=== PATIENT | male | born 1955 | race Caucasian/White ===

== ENCOUNTER 2021-11-06 10:50 | Emergency (ER) | payer MEDICARE, MEDICAID, SELFPAY ==
[2021-11-06 11:57] VITALS: BP 104/72; PULSE 72; RESP 16; TEMP 36.5; O2SAT 97
[2021-11-06 12:32] LABS: Basophils Absolute Auto 0.1 K/mm3 (0.0-0.1); Basophils Percent Auto 0.8 % (0.2-1.2); Eosinophils Absolute Auto 0.4 K/mm3 (0-0.3); Eosinophils Percent Auto 4.9 % (0-4.4); Hemoglobin 13.6 g/dL (14.0-18.0); Immature Granulocyte Absolute 0.03 K/mm3 (0.00-0.031); Immature Granulocyte Percent A 0.4 % (0-0.5); Lymphocytes Absolute Auto 1.74 K/mm3 (0.9-3.2); Lymphocytes Percent Auto 24.4 % (18.3-44.2); Mean Corpuscular HGB Conc 33.2 g/dl (32-36); Mean Corpuscular Hemoglobin 32.7 pg (26-34); Mean Corpuscular Volume 98.6 fl (80-100); Monocytes Absolute Auto 0.3 K/mm3 (0.1-0.6); Monocytes Percent Auto 4.6 % (2.6-8.5); Neutrophils Absolute Auto 4.6 K/mm3 (1.3-6.7); Neutrophils Percent Auto 64.9 % (45.5-73.1); Platelet Count Result 221 k/mm3 (150-375); Red Blood Count 4.16 M/mm3 (4.6-6.20); Red Cell Distribution Width 12.5 % (11.5-14.5); White Blood Count 7.1 K/mm3 (4.5-10.0)
[2021-11-06 12:43] LABS: Alanine Aminotransferase 17 U/L (6-50); Albumin Level 4.5 g/dL (3.5-5.1); Alkaline Phosphatase 124 U/L (38-126); Anion Gap 6 mmol/L (8-16); Aspartate Amino Transferase 28 U/L (17-59); Bilirubin,Total 0.4 mg/dL (0.2-1.3); Blood Urea Nitrogen 19 mg/dL (9-20); Calcium 8.8 mg/dL (8.4-10.2); Carbon Dioxide 30 mmol/L (22-30); Chloride 100 mmol/L (98-107); Creatine Kinase 64 U/L (55-170); Estimated CRCL calculation 33 ml/min; Estimated Glomerular Filt Rate 30; Glucose 110 mg/dL (65-110); Potassium 4.7 mmol/L (3.4-5.0); Sodium 136 mmol/L (137-145)
[2021-11-06 13:04] LABS: Magnesium 2.4 mg/dL (1.6-2.3)
--- NOTE | 2021-11-06 13:42 | ED.LOWEXIN ---
HPI - Extremity Injury (Lower) General Chief Complaint: Extremity Injury, Lower Stated Complaint: Right Calf Pain Time Seen by Provider: 11/06/21 12:08 Source: patient History of Present Illness HPI Narrative: Patient present with right calf pain x1 week it was more severe this morning so he came to the ER for evaluation. Denies any trauma to the area denies any edema. Does report he is very good about taking his anticoagulation. Denies any chest pain or shortness of breath denies any erythema to the area. Denies any fevers or chills. Pain in his calf is achy, constant, worse with walking around, radiates up his leg Related Data Home Medications Medication Instructions Recorded Confirmed acetaminophen 325 mg capsule 325 mg PO Q6H PRN 11/15/20 04/20/21 albuterol sulfate 90 mcg/actuation 2 puff INHALATION Q4H PRN g 11/15/20 04/20/21 aerosol inhaler aspirin 81 mg tablet,delayed 81 mg PO DAILY 11/15/20 04/20/21 release fluoxetine 20 mg capsule 20 mg PO TID cap 11/15/20 04/20/21 furosemide 40 mg tablet 40 mg PO DAILY tablet 11/15/20 04/20/21 levothyroxine 112 mcg capsule 112 mcg PO DAILY 11/15/20 04/20/21 lisinopril 5 mg tablet 5 mg PO DAILY 11/15/20 04/20/21 potassium chloride 20 mEq 20 meq PO DAILY 11/15/20 04/20/21 tablet,extended release pravastatin 80 mg tablet 80 mg PO DAILY 11/15/20 04/20/21 rivaroxaban 15 mg tablet 15 mg PO DAILY 11/15/20 04/20/21 Allergies Allergy/AdvReac Type Severity Reaction Status Date / Time No Known Drug Allergies Allergy Mild Unknown Verified 04/20/21 14:07 Review of Systems Review of Systems: CONSTITUTIONAL: Denies fever, chills, or sweats. EYES: Denies visual changes, redness, or discharge. ENT: Denies rhinorrhea, congestion, sore throat, or otalgia. CARDIOVASCULAR: Denies chest pain, palpitations, or edema. RESPIRATORY: Denies cough or dyspnea. GASTROINTESTINAL: Denies abdominal pain, nausea, vomiting, or diarrhea. GENITOURINARY: Denies dysuria or hematuria. SKIN: Denies rash or itching. MUSCULOSKELETAL: Denies back pain, or myalgia. NEUROLOGIC: Denies headache, numbness, dizziness, or weakness. PSYCHIATRIC: Denies anxiety or depression. All systems reviewed & are unremarkable except as noted in HPI and below PMFSH Past Medical History Medical History Back pain Social History Social History Smoking packs per day: 1 Smoking cigarettes per day: 20.0 Smoking status: Current every day smoker Alcohol intake: never Exam Narrative: GENERAL: Well-appearing, well-nourished, and in no acute distress. HEAD: Normocephalic, atraumatic. EYES: PERRLA and EOMI. ENT: Nares clear, no rhinorrhea or epistaxis. Mucous membranes moist. NECK: Supple. No masses. No JVD ABDOMEN: Soft, nontender, nondistended, normal active bowel sounds. EXTREMITIES: Normal range of motion. No erythema no skin breakdown no edema in the lower extremities no focal bony tenderness no pain with palpation of the calf SKIN: Warm, dry, no rash. NEURO: No focal deficits. Alert and oriented x3. PSYCH: Normal mood and affect. Course Reevaluation(s) Reevaluation #1: Patient resting comfortably results and plan reviewed with patient. Patient comfortable patient plan. Date: 11/06/21 Time: 13:44 Vital Signs Vital signs: Vital Signs Temperature 36.5 C 11/06/21 11:57 Pulse Rate 72 11/06/21 11:57 Respiratory Rate 16 11/06/21 11:57 Blood Pressure 104/72 11/06/21 11:57 Pulse Oximetry 97 11/06/21 11:57 Temperature 36.6 C 11/06/21 13:51 Pulse Rate 70 11/06/21 13:51 Respiratory Rate 20 11/06/21 13:51 Blood Pressure 110/64 11/06/21 13:51 Pulse Oximetry 96 11/06/21 13:51 MDM - Extremity Injury (Lower) MDM Narrative Medical decision making narrative: H&P as above, vss, pt looks clinically well, exam without edema erythema or focal bony tenderness, labs clinically un
[2021-11-06 13:51] VITALS: BP 110/64; PULSE 70; RESP 20; TEMP 36.6; O2SAT 96
== END 2021-11-06 13:52 | disposition home or self-care (01) ==
PROVIDERS: Emergency Provider Emergency Medicine; PCP Nurse Practitioner Family
DX: M79.661 Pain in right lower leg (principal); Z79.82 Long term (current) use of aspirin; Z79.01 Long term (current) use of anticoagulants; F17.210 Nicotine dependence, cigarettes, uncomplicated
CPT/HCPCS: 36415; 80053; 82550; 83735; 85025; 99283

== ENCOUNTER 2022-11-20 18:44 | Inpatient (IN) | payer MEDICARE, MEDICAID, SELFPAY ==
[2022-11-20] VITALS (7 sets, daily range): BP systolic 90–103; BP diastolic 51–79; PULSE 120–122; RESP 18–29; TEMP 36.7; O2SAT 96–100
--- NOTE | ~2022-11-20 | XR_ITS ---
Portable chest x-ray Comparison: 11/20/2022 Clinical History: Pneumonia Findings: Extensive hazy and interstitial pulmonary disease is again present. Possible minimal right pleural effusion. Cardiomediastinal silhouette is stable. Bones and soft tissues are unremarkable. Impression: Probable diffuse chronic interstitial pulmonary disease. Correlate for superimposed pneumonia or mild pulmonary edema. Minimal right pleural effusion. Reviewed, dictated and finalized at [facility]. Impression: Probable diffuse chronic interstitial pulmonary disease. Correlate for superimp osed pneumonia or mild pulmonary edema. Minimal right pleural effusion.
--- NOTE | ~2022-11-20 | CT_ITS ---
Clinical Indication: Shortness of breath, back pain CT Scan of the Chest, Abdomen, and Pelvis with Contrast: Technique: Contiguous sections were acquired throughout the chest, abdomen, and pelvis after intraven ous administration of 100 cc of Omnipaque 350. Dose reduction technique was used on this scan by uti lizing automated exposure control and iterative reconstruction technique. The dose-length product (DL P) was 1493.32 mGy-cm. COMPARISON: 11/21/2022 Findings: There is no evidence of any significant mediastinal, hilar or axillary lymphadenopathy. The mediastin al soft tissues appear normal. No pulmonary embolus identified. No aortic aneurysm or dissection. Car diomegaly noted. Small right pleural effusion present, with thickening of the pleural lining. No left pleural effusion . No pericardial effusion. There is worsening diffuse groundglass opacity in the upper lobes bilaterally. Underlying extensive i nterstitial thickening is probably similar to prior exam. There is stable mass versus consolidation i n the medial right lower lobe with extensive additional right lower lobe consolidation. The liver, spleen, pancreas, gallbladder, right adrenal gland, and kidneys are within normal limits. 1.5 cm left adrenal nodule present. Infrarenal abdominal aortic aneurysm measures 4.3 cm in maximum d iameter, with extensive atherosclerotic calcifications present. No lymphadenopathy. No bowel obstruction or bowel wall thickening. There is no evidence to suggest acute appendicitis. Santa catheter in place. Prostate gland is mildly enlarged. No ascites. Impression: Worsening extensive groundglass opacity in the lungs, compatible with worsening pulmonary edema versu s infection. Stable mass lesion or consolidation at the medial right lower lobe, which could reflect pneumonia bradley matt neoplastic lesion. Additional extensive right lower lobe consolidation similar to prior exam, lik aneesh representing additional atelectasis or pneumonia. Probable underlying chronic interstitial pulmonary disease with diffuse interstitial thickening and m ild honeycomb formation. Small chronic right pleural effusion could relate empyema or other exudative effusion. Cardiomegaly. No aortic dissection or pulmonary embolus. 4.3 cm infrarenal abdominal aortic aneurysm. 1.5 cm indeterminate left adrenal nodule. Reviewed, dictated and finalized at location M. Impression: Worsening extensive groundglass opacity in the lungs, compatible with worsening pulmonary edema versus infection. Stable mass lesion or consolidation at the medial right lower lobe, which could reflect pneumonia versus neoplastic lesion. Additional extensive right lower l obe consolidation similar to prior exam, likely representing additional atelect asis or pneumonia. Probable underlying chronic interstitial pulmonary disease with diffuse interst itial thickening and mild honeycomb formation. Small chronic right pleural effusion could relate empyema or other exudative ef fusion. Cardiomegaly. No aortic dissection or pulmonary embolus. 4.3 cm infrarenal abdominal aortic aneurysm. 1.5 cm indeterminate left adrenal nodule.
--- NOTE | ~2022-11-20 | XR_ITS ---
EXAMINATION: XR barium swallow modified DATE: 11/23/2022 09:48 INDICATION: Pneumonia. TECHNIQUE: The patient was given barium-containing material of multiple consistencies to swallow by t he speech pathologist while I performed fluoroscopy. Fluoroscopy exposure time was 1.9 minutes. The n umber of fluoroscopy images saved to the PACS was 1. Dose-area product was 1.556 Gy-cm^2. FINDINGS: There is reduced laryngeal elevation. There is laryngeal penetration with thin liquids. IMPRESSION: 1. Laryngeal penetration with thin liquids. 2. Please refer to the speech therapy report for recommendations. Reviewed, dictated and finalized at location A.
--- NOTE | ~2022-11-20 | CT_ITS ---
Non-contrast Head CT History: Dilated and fixed right pupil COMPARISON: 11/20/2022 Technique: Axial non-contrast imaging of the brain was performed. Dose reduction technique was used on this scan by utilizing automated exposure control and iterative reconstruction technique. The dose -length product (DLP) was 2043.00 mGy-cm. Findings: There is no evidence of intracranial hemorrhage, mass lesion, or acute infarct. Extensive chronic right frontoparietal lobe infarct is unchanged. The ventricles and subarachnoid spaces are d ilated, consistent with generalized atrophy. The calvarium appears normal. The visualized paranasal sinuses and mastoid air cells are clear. Impression: No acute abnormality seen. Stable extensive chronic right frontoparietal lobe infarct. Reviewed, dictated and finalized at location . Impression: No acute abnormality seen. Stable extensive chronic right frontoparietal lobe infarct.
--- NOTE | ~2022-11-20 | NM_ITS ---
EXAMINATION: NM pulmonary perfusion DATE: 11/21/2022 11:46 INDICATION: Hemoptysis. TECHNIQUE: 4.6 mCi Tc-99m MAA was administered intravenously for perfusion images. Scintigraphic gagandeep ges of the chest were obtained. COMPARISON: Chest single view 11/20/2022 FINDINGS: Perfusion images show large defects in the upper and lower lobes correlating with chest radiograph ab normalities. IMPRESSION: 1. Nondiagnostic (intermediate probability for pulmonary embolism). Reviewed, dictated and finalized at location A.
--- NOTE | ~2022-11-20 | CT_ITS ---
EXAMINATION:CT diagnostic chest wo con DATE: 11/21/2022 14:39 INDICATION: Hemoptysis. TECHNIQUE: Computed tomography (CT) of the chest was performed without intravenous contrast. Automate d exposure control and iterative reconstruction technique were employed. The dose-length product (DLP ) was 408.14 mGy-cm. COMPARISON: Chest CT 07/16/2009, chest single view 11/20/2022, chest 2 views 11/10/2013 FINDINGS: There is mild emphysema. There is widespread septal thickening in the lungs with architectu ral distortion. There are areas of honeycombing in the upper lobes, right middle lobe, and left lower lobe. There are scattered airspace and groundglass opacities in all lobes, worst in right lower lobe . There is material in the right lower lobe bronchi. There is a small right pleural effusion with ple ural thickening. Cardiomegaly is noted. There are coronary artery calcifications. There are changes o f coronary artery bypass grafting and mitral valve placement. No pericardial effusion. There is mild thoracic spondylosis. IMPRESSION: 1. Diffuse lung disease, likely a combination of pneumonia, pulmonary edema, chronic interstitial jessica g disease in a pattern of usual interstitial pneumonia (UIP), and mild emphysema. 2. Small right pleural effusion with pleural thickening, likely an exudate. Reviewed, dictated and finalized at location A. IMPRESSION: 1. Diffuse lung disease, likely a combination of pneumonia, pulmonary edema, ch ronic interstitial lung disease in a pattern of usual interstitial pneumonia (U IP), and mild emphysema. 2. Small right pleural effusion with pleural thickening, likely an exudate.
--- NOTE | ~2022-11-20 | CT_ITS ---
EXAMINATION: CT brain wo con DATE: 11/20/2022 19:25 INDICATION: facial droop . TECHNIQUE: Computed tomography (CT) of the head was performed without intravenous contrast. The mA wa s adjusted according to patient size. Iterative reconstruction technique was employed. The dose-lengt h product was 681.00 mGy-cm. COMPARISON: 03/03/2012. FINDINGS: No acute intracranial hemorrhage or extra-axial fluid collection. No hydrocephalus, mass, or herniation. No acute ischemic infarct. Unremarkable dural venous sinus attenuation. No acute osseous abnormality. Left maxillary sinus opacification with slight expansion and surrounding osseous sclerosis, mild ethm oid mucosal thickening, the remaining aerated spaces are clear. Moderate atrophy and chronic white matter change. Atherosclerotic intracranial calcification. Right p osterior frontal, basal ganglia, temporal and parietal encephalomalacia, likely from old infarct. Ex vacuo dilation of the right lateral ventricle. IMPRESSION: No acute intracranial process. Reviewed, dictated and finalized at location K.
--- NOTE | ~2022-11-20 | US_ITS ---
. EXAMINATION: US venous doppler UE DATE: 11/21/2022 15:20 INDICATION: Hemoptysis. Shortness of breath. TECHNIQUE: Grayscale ultrasound images without and with compression and Doppler ultrasound images of the bilateral upper extremity veins were obtained. COMPARISON: None. FINDINGS: The visualized portions of the right internal jugular vein, subclavian vein, axillary vein, brachial veins, basilic vein, cephalic vein, radial vein, and ulnar vein are patent. The visualized portions of the left internal jugular vein, subclavian vein, axillary vein, brachial v eins, basilic vein, cephalic vein, radial vein, and ulnar vein are patent. IMPRESSION: 1. No deep venous thrombosis. Reviewed, dictated and finalized at location A.
--- NOTE | ~2022-11-20 | XR_ITS ---
EXAMINATION: XR chest 1V Exam Date/Time: 11/20/2022 19:25 CDT HISTORY: Stroke symptoms, SLURRED SPEECH WITH RT SIDE FACIAL NUMBNESS Comparison: 12/11/2013. RESULT: Lines, tubes, and devices: Intact sternotomy wires. Cardiac valve replacement. Mediastinal surgical clips. Lungs and pleura: Diffuse bilateral patchy airspace disease and reticular opacities. Minimal bilater al costophrenic angle blunting. Cardiomediastinal silhouette: Stable. Other: No acute osseous or upper abdominal finding. IMPRESSION: Pulmonary opacities likely represent moderate pulmonary edema with a small bilateral pleural effusion s. Infection is not excluded. Reviewed, dictated and finalized at location K. IMPRESSION: Pulmonary opacities likely represent moderate pulmonary edema with a small bila teral pleural effusions. Infection is not excluded.
--- NOTE | ~2022-11-20 | US_ITS ---
EXAMINATION: US venous doppler [facility] DATE: 11/21/2022 15:21 INDICATION: Shortness of breath. TECHNIQUE: Grayscale ultrasound images without and with compression and Doppler ultrasound images of the bilateral lower extremity veins were obtained. COMPARISON: Ultrasound 07/19/2009 FINDINGS: The visualized portions of right common femoral vein, profunda (deep) femoral vein, femoral vein, pop liteal vein, peroneal veins, posterior tibial veins, and greater saphenous vein outflow are patent. The visualized portions of left common femoral vein, profunda femoral vein, femoral vein, popliteal v ein, peroneal veins, posterior tibial veins, and greater saphenous vein outflow are patent. IMPRESSION: 1. No deep venous thrombosis. Reviewed, dictated and finalized at location A.
--- NOTE | ~2022-11-20 | XR_ITS ---
EXAMINATION: XR chest 1V portable DATE: 11/23/2022 22:57 INDICATION: Shortness of breath. Hypoxia. TECHNIQUE: frontal view of the chest was obtained. COMPARISON: Chest radiograph dated 11/22/2022 FINDINGS: Interval increase in the diffuse interstitial pattern and patchy airspace opacities throughout both l ungs consistent with worsening now moderate to severe pulmonary edema. Small bilateral pleural effusi ons. No pneumothorax. Cardiomegaly. Median sternotomy wires and mediastinal surgical clips are seen, likely from prior coronary artery bypass grafting. Mitral valve repair. IMPRESSION: 1. Interval increase in diffuse bilateral interstitial and airspace opacities consistent with worseni ng now moderate to severe pulmonary edema. Differential includes pneumonia. 2. Small bilateral pleural effusions. 3. Cardiomegaly. Reviewed, dictated and finalized at location A. IMPRESSION: 1. Interval increase in diffuse bilateral interstitial and airspace opacities c onsistent with worsening now moderate to severe pulmonary edema. Differential i ncludes pneumonia. 2. Small bilateral pleural effusions. 3. Cardiomegaly.
--- NOTE | 2022-11-20 19:03 | ECG_ITS ---
Measurements Intervals [place] Rate: 120 P: FL: 0 QRS: 9 QRSD: 96 T: 157 QT: 316 QTc: 448 Interpretive Statements ATRIAL FLUTTER/TACHYCARDIA WITH RAPID VENTRICULAR RESPONSE ST-T WAVE ABNORMALITY IN HIGH LATERAL LEADS- CONSIDER ISCHEMIA ABNORMAL ECG NO PREVIOUS ECG AVAILABLE FOR COMPARISON Electronically Signed On 11-21-2022 8:06:08 CDT by Roman Bush D.O.
[2022-11-20 19:52] LABS: Glucose Point of Care 127 mg/dl (65-105)
[2022-11-20 19:52] LABS: Basophils Percent Auto 0.2 % (0.2-1.2); Eosinophils Absolute Auto 0.1 K/mm3 (0-0.3); Eosinophils Percent Auto 0.5 % (0-4.4); Hematocrit 26.5 % (42.0-52.0); Hemoglobin 8.1 g/dL (14.0-18.0); Immature Granulocyte Absolute 0.04 K/mm3 (0.00-0.031); Immature Granulocyte Percent A 0.3 % (0-0.5); Lymphocytes Absolute Auto 1.66 K/mm3 (0.9-3.2); Lymphocytes Percent Auto 12.9 % (18.3-44.2); Mean Corpuscular HGB Conc 30.6 g/dl (32-36); Mean Corpuscular Hemoglobin 27.7 pg (26-34); Mean Corpuscular Volume 90.8 fl (80-100); Mean Platelet Volume 8.8 fl (7.4-10.4); Monocytes Absolute Auto 0.8 K/mm3 (0.1-0.6); Monocytes Percent Auto 5.9 % (2.6-8.5); Neutrophils Absolute Auto 10.3 K/mm3 (1.3-6.7); Neutrophils Percent Auto 80.2 % (45.5-73.1); Platelet Count Result 316 k/mm3 (150-375); Red Blood Count 2.92 M/mm3 (4.6-6.20); Red Cell Distribution Width 14.1 % (11.5-14.5); White Blood Count 12.9 K/mm3 (4.5-10.0)
[2022-11-20 20:01] LABS: Alanine Aminotransferase 17 U/L (6-50); Albumin Level 3.5 g/dL (3.5-5.1); Alkaline Phosphatase 137 U/L (38-126); Anion Gap 6 mmol/L (8-16); Aspartate Amino Transferase 28 U/L (17-59); Bilirubin,Total 0.5 mg/dL (0.2-1.3); Blood Urea Nitrogen 19 mg/dL (9-20); Calcium 8.3 mg/dL (8.4-10.2); Carbon Dioxide 29 mmol/L (22-30); Chloride 102 mmol/L (98-107); Estimated CRCL calculation 37 ml/min; Estimated Glomerular Filt Rate 33; Glucose 127 mg/dL (65-110); Potassium 4.2 mmol/L (3.4-5.0); Sodium 137 mmol/L (137-145)
[2022-11-20 20:05] LABS: INR 2.4; Prothrombin Time 28.1 Seconds (11.1-14.7)
[2022-11-20 20:06] LABS: Partial Thromboplastin Time 55.2 SECONDS (22.3-36.8)
[2022-11-20] MEDS: IPRATROPIUM BR 0.02% INH SOLN 0.5 MG/2.5 ML VIAL INHALATION (20:10)
[2022-11-20] MEDS: LEVALBUTEROL NEB 1.25 MG/3 ML INHALATION (20:10)
[2022-11-20 20:12] LABS: Troponin I 0.024 ng/mL (0.000-0.034)
[2022-11-20] MEDS: SODIUM CHLORIDE 0.9% IV 1,000 ML 999 ML IV CONT (20:42)
[2022-11-20 20:50] LABS: Lactic Acid Reflex 0.9 mmol/L (0.7-2.0)
[2022-11-20 20:58] LABS: NT Pro B Type Natriuretic Pept 5230 pg/mL (19.9-100)
[2022-11-20] MEDS: LEVALBUTEROL NEB 1.25 MG/3 ML 2.5 MG INHALATION (22:03)
--- NOTE | 2022-11-20 22:10 | ED.GENADULT ---
HPI - General Adult General Chief complaint: Neuro Symptoms/Deficit Stated complaint: SLURRED SPEECH, HISTORY OF CVA Time Seen by Provider: 11/20/22 19:03 History of Present Illness HPI narrative: Patient is a 67-year-old male with history of CVA who presents ER due to concern for possible CVA by family. They report he awoke from a nap with new slurred speech. They thought he may have been having a stroke. They report he has been having difficulty standing over the last 2 weeks has had falls more than usual. reports she cannot take care of him. Patient also has new cough but no fevers or chills reported. He denies any chest pain or racing heart. He denies any slurred speech at this time and has no additional complaints. Related Data Home Medications Medication Instructions Recorded Confirmed albuterol sulfate 90 mcg/actuation 2 puff inhalation Q4H PRN 11/15/20 11/20/22 aerosol inhaler (ProAir HFA) Shortness Of Breath Or Wheezing aspirin 81 mg tablet,delayed 81 mg PO DAILY 11/15/20 11/20/22 release fluoxetine 20 mg capsule (Prozac) 20 mg PO DAILY 11/15/20 11/20/22 furosemide 40 mg tablet 40 mg PO DAILY 11/15/20 11/20/22 levothyroxine 112 mcg capsule 112 mcg PO DAILY 11/15/20 11/20/22 lisinopril 5 mg tablet 5 mg PO DAILY 11/15/20 11/20/22 potassium chloride 20 mEq 20 meq PO DAILY 11/15/20 11/20/22 tablet,extended release pravastatin 80 mg tablet 80 mg PO DAILY 11/15/20 11/20/22 rivaroxaban 15 mg tablet (Xarelto) 15 mg PO DAILY 11/15/20 11/20/22 carvedilol 3.125 mg tablet 3.125 mg PO BID 11/20/22 11/20/22 Allergies Allergy/AdvReac Type Severity Reaction Status Date / Time No Known Drug Allergies Allergy Mild Unknown Verified 04/20/21 14:07 Review of Systems Review of Systems: All systems reviewed & are unremarkable except as noted in HPI and below Constitutional: Constitutional: Denies chills, Denies fatigue and Denies fever(s) ENT: Denies nasal congestion and Denies sore throat Cardiovascular: Cardiovascular: Denies chest pain, Denies rapid heart rate and Denies radiating jaw, neck or arm pain Respiratory: Respiratory: Reports chest congestion, Reports cough, Denies dyspnea and Reports wheezing Gastrointestinal: Gastrointestinal: Denies abdominal pain, Denies diarrhea, Denies nausea and Denies vomiting Neurologic: Denies syncope and Reports focal weakness (Chronic left side) Comments: Frequent falls PMFSH Past Medical History Medical History (Updated 11/21/22 @ 06:48 by Trev Emmanuel MD) Anxiety Back pain Coronary artery disease CVA (cerebral vascular accident) Depression Hypertension Seizure Surgical History Surgical History (Updated 11/21/22 @ 06:46 by Trev Emmanuel MD) History of appendectomy History of percutaneous coronary intervention Hx of CABG Social History Social History Smoking packs per day: 1 Smoking cigarettes per day: 20.0 Smoking status: Current every day smoker Alcohol intake: never Lack of Transportation: No Lack of Food: Never True Current Housing: I Have Housing Concerned About Future Housing: No Difficulty Paying Gas/Electric Bills: No Difficulty Paying for Meds: No Currently Unemployed: No Education: Decline to Answer Difficulty w/ Childcare or Family Care: Decline to Answer Spiritual care concerns: No Exam Narrative: GENERAL: Chronically ill-appearing, well-nourished, and in no acute distress. HEAD: Normocephalic, atraumatic. EYES: PERRL and EOMI. ENT: Mucous membranes moist. CHEST: Coarse rales and wheezing throughout. No respiratory distress. HEART: Tachycardic and regular. Normal peripheral pulses. ABDOMEN: Soft, nontender, nondistended. EXTREMITIES: Normal range of motion. No edema. SKIN: Warm, dry, no rash. NEURO: Residual left-sided weakness due to CVA. No dysarthria or expressive aphasia. Cranial nerves symmetric. Alert and oriented x3.
[2022-11-20] MEDS: LORazepam INJ (*CRX) 2 MG/ML VIAL 1 MG IV PUSH (22:11)
--- NOTE | 2022-11-20 23:44 | PM.IMHP ---
H&P: HPI History of Present Illness Date/Time: 11/20/22 23:44 Chief Complaint: Slurred speech; recurrent falls. Narrative: This is a 67-year-old gentleman with a past medical history including but not limited to CVA(2010), left-sided residual deficit, recurrent falls for several days; hypotensive and tachycardic with the following vital signs : A temperature of 97.5?, heart rate 121, respiration rate 18, BP 90/79. he CBC shows a WBC of 12.9, hemoglobin 8.1, hematocrit 26.5, platelet count 316. His chemistry shows a serum sodium of 137, a potassium of 4.2, chloride 102, bicarbonate 29, BUN 19, creatinine 2.0. Blood glucose an Accu-Chek were post 127. Lactic acid level was 0.9. His iron level was low at 23, with a TIBC of 246, and iron saturation of 9.0. His chest x-ray showed intact sternotomy wires. Cardiac valve replacement. Mediastinal surgical clips. Lungs and pleura:? Diffuse bilateral patchy airspace disease and reticular opacities. Minimal bilateral costophrenic angle blunting. Cardiomediastinal silhouette:? Stable. Other:? No acute osseous or upper abdominal finding. The patient is a poor historian. History is gathered from chart review. This AM RN reports that the patient is coughing blood. Dried blood can be observed on the nares. Review of Systems Review of Systems: ROS unobtainable: Yes unobtainable due to mental status PMFSH Past Medical History Medical History (Updated 11/21/22 @ 10:06 by Adleina Quintana MD) Anxiety Back pain Coronary artery disease CVA (cerebral vascular accident) Depression Hypertension Seizure Surgical History Surgical History (Updated 11/21/22 @ 10:03 by Adelina Quintana MD) History of appendectomy History of percutaneous coronary intervention Hx of CABG Social History Social History Smoking packs per day: 1 Smoking cigarettes per day: 20.0 Smoking status: Current every day smoker Alcohol intake: never Lack of Transportation: No Lack of Food: Never True Current Housing: I Have Housing Concerned About Future Housing: No Difficulty Paying Gas/Electric Bills: No Difficulty Paying for Meds: No Currently Unemployed: No Education: Decline to Answer Difficulty w/ Childcare or Family Care: Decline to Answer Spiritual care concerns: No Meds Home Medications and Allergies Home Medications Medication Instructions Recorded Confirmed Type albuterol sulfate 90 mcg/actuation 2 puff inhalation Q4H PRN 11/15/20 11/20/22 History aerosol inhaler (ProAir HFA) Shortness Of Breath Or Wheezing aspirin 81 mg tablet,delayed 81 mg PO DAILY 11/15/20 11/20/22 History release fluoxetine 20 mg capsule (Prozac) 20 mg PO DAILY 11/15/20 11/20/22 History furosemide 40 mg tablet 40 mg PO DAILY 11/15/20 11/20/22 History levothyroxine 112 mcg capsule 112 mcg PO DAILY 11/15/20 11/20/22 History lisinopril 5 mg tablet 5 mg PO DAILY 11/15/20 11/20/22 History potassium chloride 20 mEq 20 meq PO DAILY 11/15/20 11/20/22 History tablet,extended release pravastatin 80 mg tablet 80 mg PO DAILY 11/15/20 11/20/22 History rivaroxaban 15 mg tablet (Xarelto) 15 mg PO DAILY 11/15/20 11/20/22 History hydrocodone 7.5 mg-acetaminophen 1 tablet PO Q6H PRN pain (scale 05/22/21 11/20/22 Rx 325 mg tablet score 7-10) #120 tabs gabapentin 300 mg capsule 300 mg PO DAILY #30 caps 11/06/21 11/20/22 Rx carvedilol 3.125 mg tablet 3.125 mg PO BID 11/20/22 11/20/22 History Allergies Allergy/AdvReac Type Severity Reaction Status Date / Time No Known Drug Allergies Allergy Mild Unknown Verified 04/20/21 14:07 Vital Signs Vital Signs - 24 hr 11/20/22 18:54 11/20/22 20:10 11/20/22 20:18 Temperature 98.0 F Pulse Rate 121 H 120 H 121 H Respiratory Rate 20 20 18 Blood Pressure 90/51 L Pulse Oximetry 100 Oxygen Delivery Room Air 11/20/22 20:44 11/20/22 22:03 11/20/22 23:18 Temperature Pulse Rate 120 H 121 H 120 H Res
[2022-11-21] VITALS (31 sets, daily range): BP systolic 80–115; BP diastolic 38–78; PULSE 100–125; RESP 18–24; TEMP 36–36.9; O2SAT 85–100; BMI 23.4
--- NOTE | 2022-11-21 | ECHO_ITS ---
Patient Info Name: Billy Rosenberg Age: 67 years : 1955 Gender: Male Ht: 72 in Wt: 172 lbs BSA: 1.99 m2 HR: 120 bpm BP: 91 / 59 mmHg Heart Rhythm: Sinus Rhythm, Tachycardia Technical Quality: Fair Exam Date: 11/21/2022 9:08 AM Exam Location: [facility] Patient Status: Outpatient Admit Date: 11/20/2022 Staff Ordering Physician: Adelina Quintana MD Automobile Locator: Carlita Faye RDCS Attending Provider: Adelina Quintana MD Exam Type: CA echo doppler color flow Study Info Indications - Pulmonary Embolisim Complete two-dimensional, color flow and Doppler transthoracic echocardiogram is performed. Summary 1. Complete two-dimensional, color flow and Doppler transthoracic echocardiogram is performed. 2. Left ventricular chamber dimension is normal. 3. Left ventricular systolic function is mildly reduced, estimated at 40-45%. Of note, patient is tachycardic during this study. 4. Left ventricular septal wall motion is abnormal with septal motion related to a post-operative state. 5. Right ventricular chamber dimension is normal. 6. Right ventricular systolic function is normal. 7. The mitral valve annulus is severely calcified. 8. The mitral valve has thickened leaflets. 9. There is trace mitral valve regurgitation. 10. There is mild tricuspid valve regurgitation. Left Ventricle Left ventricular chamber dimension is normal. Left ventricular systolic function is mildly reduced, estimated at 40-45%. Of note, patient is tachycardic during this study. There is no increased left ventricular wall thickness. Left ventricular septal wall motion is abnormal with septal motion related to a post-operative state. Right Ventricle Right ventricular chamber dimension is normal. Right ventricular systolic function is normal. Left Atria Left atrial chamber dimension is normal. Right Atria Right atrial chamber dimension is normal. Atrial Septum Intact interatrial septum visualized by color flow imaging. Aortic Valve The aortic valve is trileaflet. There is no aortic valve stenosis. There is no aortic valve regurgitation. There is mild aortic valve calcification. Pulmonic Valve The pulmonic valve is not well visualized. Mitral Valve The mitral valve has thickened leaflets. There is trace mitral valve regurgitation. The mitral valve annulus is severely calcified. Tricuspid Valve There is mild tricuspid valve regurgitation. Pericardium/Pleural There is no pericardial effusion. Inferior Vena Cava Normal inferior vena cava with >50% collapse upon inspiration consistent with normal right atrial pressure, 3 mmHg. Aorta The aortic root size at the sinus of Valsalva is normal. Left Ventricular Outflow Tract Name Value Normal LVOT 2D LVOT Diameter 2.2 cm LVOT Doppler LVOT Peak Gradient 3 mmHg LVOT Mean Gradient 1 mmHg LVOT VTI 13 cm LVOT VTI/AV VTI Ratio 0.8 LVOT Stroke Volume 49 ml LVOT CO 6.1 l/min LVOT CI 3.1 l/min/m2 Pulmonic Valve
[2022-11-21 00:12] LABS: Folic Acid 6.9 ng/mL (2.76->20)
[2022-11-21 00:20] LABS: Iron 23 ug/dL (49-181)
[2022-11-21 00:29] LABS: Percent Iron Saturation 9 % (20-50)
[2022-11-21] MEDS: diphenhydrAMINE HCl INJ 50 MG/ML VIAL 25 MG IV PUSH (00:36)
[2022-11-21] MEDS: LORazepam INJ (*CRX) 2 MG/ML VIAL 1 MG IM (00:36)
[2022-11-21 00:53] LABS: Thyroid Stimulating Hormone Reflex < 0.015 uIU/mL (0.465-4.68)
[2022-11-21] MEDS: AZITHROMYCIN 500 MG/NS 250 ML 500 MG/250 ML BAG 250 MG IVPB (01:20)
[2022-11-21] MEDS: HALOPERIDOL LACTATE 5 MG/ML VIAL IM ×2 (01:58→20:17)
[2022-11-21 02:22] LABS: Free T4 Free Thyroxine Reflex 1.62 ng/dL (0.78-2.19)
[2022-11-21 03:15] LABS: Total Triiodothyronine (T3) 0.88 NG/ML (0.97-1.69)
[2022-11-21] MEDS: IRON SUCROSE COMPLEX 100 MG in SODIUM CHLORIDE 0.9% IV 50 ML 220 MG IVPB (03:24)
[2022-11-21] MEDS: SODIUM CHLORIDE 0.9% IV 250 ML 999 ML IV CONT (03:41)
--- NOTE | 2022-11-21 06:39 | PC.NURSE ---
Pt found to have a copious amount of dried blood that appeared to come from his mouth. Pt does not open mouth long enough for RN to identify the source. MD Quintana notified and coming to bedside.
[2022-11-21 07:12] LABS: Basophils Percent Auto 0.4 % (0.2-1.2); Eosinophils Absolute Auto 0.1 K/mm3 (0-0.3); Eosinophils Percent Auto 0.9 % (0-4.4); Hematocrit 25.2 % (42.0-52.0); Hemoglobin 7.6 g/dL (14.0-18.0); Immature Granulocyte Absolute 0.06 K/mm3 (0.00-0.031); Immature Granulocyte Percent A 0.6 % (0-0.5); Lymphocytes Absolute Auto 1.95 K/mm3 (0.9-3.2); Lymphocytes Percent Auto 18.6 % (18.3-44.2); Mean Corpuscular HGB Conc 30.2 g/dl (32-36); Mean Platelet Volume 8.6 fl (7.4-10.4); Monocytes Absolute Auto 0.5 K/mm3 (0.1-0.6); Monocytes Percent Auto 5.2 % (2.6-8.5); Neutrophils Absolute Auto 7.8 K/mm3 (1.3-6.7); Neutrophils Percent Auto 74.3 % (45.5-73.1); Platelet Count Result 265 k/mm3 (150-375); Red Blood Count 2.71 M/mm3 (4.6-6.20); Red Cell Distribution Width 14.3 % (11.5-14.5); White Blood Count 10.5 K/mm3 (4.5-10.0)
[2022-11-21 07:24] LABS: Ammonia < 9 umol/L (9-30); Lactic Acid Reflex 1.1 mmol/L (0.7-2.0)
[2022-11-21 07:47] LABS: Anion Gap 7 mmol/L (8-16); Blood Urea Nitrogen 19 mg/dL (9-20); Carbon Dioxide 27 mmol/L (22-30); Chloride 105 mmol/L (98-107); Estimated CRCL calculation 40 ml/min; Estimated Glomerular Filt Rate 38; Glucose 108 mg/dL (65-110); Sodium 139 mmol/L (137-145)
[2022-11-21 07:49] LABS: D Dimer 0.63 ug/mL (<0.48)
[2022-11-21 10:03] LABS: Iron 109 ug/dL (49-181)
[2022-11-21] MEDS: TUBING, BLOOD PLUM PUMP TUBING 1 EACH XX (10:05)
[2022-11-21] MEDS: LEVOTHYROXINE SODIUM 112 MCG TABLET PO (10:08)
[2022-11-21] MEDS: GABAPENTIN 300 MG CAPSULE PO (10:08)
[2022-11-21] MEDS: FLUoxetine HCL 20 MG CAPSULE PO (10:08)
[2022-11-21] MEDS: PRAVASTATIN SODIUM 20 MG TABLET 80 MG PO (10:09)
[2022-11-21] MEDS: POTASSIUM CHLORIDE 20 MEQ TABLET.ER PO (10:09)
[2022-11-21] MEDS: lisinopriL 5 MG TABLET PO (10:09)
[2022-11-21] MEDS: FUROSEMIDE 40 MG TABLET PO (10:09)
[2022-11-21] MEDS: ASPIRIN 81 MG ENTERIC TABLET PO (10:10)
[2022-11-21] MEDS: carvediloL 6.25 MG TABLET PO ×2 (10:11→20:16)
[2022-11-21] MEDS: SODIUM CHLORIDE 0.9% IV 250 ML 30 ML IV CONT (10:12)
[2022-11-21 10:14] LABS: Percent Iron Saturation 44 % (20-50)
--- NOTE | 2022-11-21 12:15 | PM.IMPN ---
Progress Note: A&P Assessment and Plan (1) Altered mental status: Code(s): R41.82 - Altered mental status, unspecified Status: Acute Assessment and Plan: This is improved. Workup negative (2) Hypothyroidism: Code(s): E03.9 - Hypothyroidism, unspecified Status: Acute Assessment and Plan: Supplemented. Continue home meds. (3) Hemoptysis: Code(s): R04.2 - Hemoptysis Status: Acute Assessment and Plan: No more hemoptysis monitor hgb cxr noted- continue abx for ? pna pulmonary consult (4) CKD (chronic kidney disease) stage 3, GFR 30-59 ml/min: Code(s): N18.30 - Chronic kidney disease, stage 3 unspecified Status: Acute Assessment and Plan: Baseline stage III CKD with creatinine in the 1.8 -2.2 range. her nephrotoxic medication. Continue to monitor closely. Renally dose medications. The etiology is unclear. (5) Acute anemia: Code(s): D64.9 - Anemia, unspecified Status: Acute Assessment and Plan: transfuse workup pending fobt pending - no recent stools (6) Pneumonia: Code(s): J18.9 - Pneumonia, unspecified organism Status: Acute Assessment and Plan: abx consult pulm (7) COPD (chronic obstructive pulmonary disease): Code(s): J44.9 - Chronic obstructive pulmonary disease, unspecified Status: Acute Assessment and Plan: Continue levalbuterol and ipratropium nebulization. Subjective Date/time seen: 11/21/22 12:15 Interval history: No new complaints. Exam Narrative: GENERAL: The patient is alert and orientedX2, in no apparent distress. He is uttering few incomprehensible words. HEENT: Pupils are equally round and briskly reactive to light. Oral mucous membranes are moist without lesions, with some dry blood.. NECK: The patient has no noted JVD. No adenopathy is appreciated. CHEST/LUNGS: Lungs with diffuse bilateral rhonchi. No rales, or wheezes. There is no subcutaneous air appreciated. There is no tenderness to the chest wall. HEART: The patient has a regular rate and rhythm. No murmurs, rubs, or gallops are appreciated. ABDOMEN: The patient?s abdomen is soft, nontender, and nondistended. Bowel sounds are positive. No organomegaly is appreciated. No masses are appreciated. EXTREMITIES: The patient has no peripheral edema. There is no focal long bone tenderness or deformity. SKIN: The patient?s skin is warm and dry, without rashes or lesions. PSYCHIATRIC: He is AAOx2. NEUROLOGIC: The patient has L sided residual weakness. Objective Data Vital Signs Vital Signs: Vital Signs - 24 hr 11/20/22 18:54 11/20/22 20:10 11/20/22 20:18 Temperature 98.0 F Pulse Rate 121 H 120 H 121 H Respiratory Rate 20 20 18 Blood Pressure 90/51 L Pulse Oximetry 100 Oxygen Delivery Room Air 11/20/22 20:44 11/20/22 22:03 11/20/22 23:18 Temperature Pulse Rate 120 H 121 H 120 H Respiratory Rate 20 29 H 18 Blood Pressure 90/79 L 103/71 Pulse Oximetry 96 100 Oxygen Delivery 11/20/22 21:35 11/21/22 00:37 11/21/22 02:00 Temperature 97.5 F L Pulse Rate 122 H 118 H 118 H Respiratory Rate 20 Blood Pressure 98/73 L Pulse Oximetry 98 Oxygen Delivery 11/21/22 00:00 11/21/22 03:49 11/21/22 03:52 Temperature Pulse Rate Respiratory Rate Blood Pressure Pulse Oximetry 85 L Oxygen Delivery Room Air Room Air 11/21/22 04:00 11/21/22 04:00 11/21/22 06:00 Temperature 96.8 F L Pulse Rate 115 H 115 H 120 H Respiratory Rate 22 H Blood Pressure 91/59 L Pulse Oximetry 96 Oxygen Delivery 11/21/22 06:54 11/21/22 03:30 11/21/22 08:00 Temperature 97.5 F L Pulse Rate 121 H 122 H Respiratory Rate 24 H Blood Pressure 97/72 L 80/42 L 115/78 Pulse Oximetry 100 Oxygen Delivery 11/21/22 10:04 11/21/22 10:11 11/21/22 10:20 Temperature 97.3 F L 97.4 F L Pulse Rate 123 H 123 H 125 H Respiratory Rate 24 H 18 Blood Pre
--- NOTE | 2022-11-21 13:15 | ECG_ITS ---
Measurements Intervals [place] Rate: 118 P: MI: 0 QRS: 19 QRSD: 104 T: 157 QT: 341 QTc: 478 Interpretive Statements ATRIAL FLUTTER/TACHYCARDIA WITH RAPID VENTRICULAR RESPONSE INCOMPLETE RIGHT BUNDLE BRANCH BLOCK CONSIDER INFERIOR INFARCT, AGE INDETERMINATE ST-T WAVE ABNORMALITY IN HIGH LATERAL LEADS- CONSIDER ISCHEMIA ABNORMAL ECG COMPARED TO ECG 11/20/2022 19:16:29 NO SIGNIFICANT CHANGES Electronically Signed On 11-21-2022 14:49:46 CDT by Roman Bush D.O.
--- NOTE | 2022-11-21 13:20 | PM.CNPUL ---
Assessment and Plan Assessment and plan (1) Hemoptysis: Code(s): R04.2 - Hemoptysis Status: Acute Assessment and Plan: Patient with a 25 pack year tobacco use and is currently smoking at 1/2 pack per day and a chest x-ray with diffuse infiltrates bilaterally, white blood cell count 12.9 at admission with borderline blood pressure and tachycardia and acute kidney injury with a creatinine of 2.0. Etiology of hemoptysis includes infection, cancer, anticoagulation with rivaroxaban an aspirin. Recommend discontinuing rivaroxaban and aspirin at this time until the etiology of patient's hemoptysis with anemia is determined. Agree with treatment of ceftriaxone and azithromycin for possible community-acquired pneumonia (started 11/20/22). I will obtain CT scan of the chest without contrast to assess his pulmonary parenchyma. I would check an ABG to assess for hypercarbia. Patient with a positive D-dimer and indeterminate V/Q scan. I will obtain upper and lower extremity Dopplers to exclude DVT. Patient was no chris wheezes and at this time will restart levalbuterol and ipratropium nebulizers and change or frequency to q.4 hours. I will not initiate inhaled or systemic steroids at this time discussed with Dr. Schneider. Will follow with you. History of Present Illness History of Present Illness Consult date: 11/21/22 Chief complaint: Pneumonia,COPD,Weakness,Anemia Narrative: 11/21/2022: This is a new pulmonary consult for pneumonia. 67-year-old man with a history of CVA in 2010 placed on blood thinner since then, tobacco use, coronary artery disease, hypertension, hyperlipidemia, status post median sternotomy and cardiac surgery. Patient tells me he has had 1 week worsening dyspnea on exertion with no rest shortness of breath. He was brought to the emergency department on 11/20 because of slurred speech. The patient denies fever, chills, rigors, phlegm production or hemoptysis. I spoke with the bedside nurse and he did have dried blood in the back of his throat and the nighttime staff stated that he did cough up blood but the quantity was not related to the daytime nurse. Patient presented to the emergency department with room air sats 96-100 he had rhonchi with no wheezes. His white blood cell count was 12.9, is eosinophils were 0.5%. His creatinine was 2.0. His BNP was 5230 and his chest x-ray showed diffuse infiltrates. his D-dimer was 0.63. He was admitted for pneumonia and COPD and treated with ceftriaxone, azithromycin, levalbuterol and ipratropium. 11/21/2022: Currently the patient states that he is breathing at his baseline. He denies fever, chills, rigors, cough, phlegm production or blood. The bedside nurse states he has had no bleeding since this morning. At baseline he can walk 30-40 steps. Patient smokes tobacco at 1/2 pack per day from age 17 to current for total of 25 pack years. 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 Currently the patient is on 2 L nasal cannula saturations 100%. Hemoglobin this morning was 7.6 and his creatinine was 1.8. The patient has received 1 unit of packed red blood cells. Perfusion scan today was nondiagnostic with large defects in the upper and lower lobes. DATA EXAMINATION: NM pulmonary perfusion DATE:? 11/21/2022 11:46 INDICATION: Hemoptysis. TECHNIQUE: 4.6 mCi Tc-99m MAA was administered intravenously for perfusion images.? Scintigraphic images of the chest were obtained. COMPARISON: Chest single view 11/20/2022 FINDINGS: Perfusion images show large defects in the upper and lower lobes correlating with chest radiograph abnormalities. IMPRESSION: 1.? Nondiagnostic (intermediate probability for pulmonary embolism). Review of Systems Constitutional: Constitutional: Reports no additional constitutional complaints Eyes: Eyes:
[2022-11-21 13:49] LABS: Alveolar/Arterial O2 Gradient 68.2 mmHg; Fractional Inspired Oxygen 28 %; HCO3 ABG 25.6 mEq/l (22.0-26.0); Oxygen Content ABG 15.5 %vol (16.0-22.0); Oxygen Saturation ABG 97.3 % (95.0-100.0); Oxyhemoglobin 95.8 % THb (90.0-100.0); PCO2 ABG 36.1 mmHg (35.0-45.0); PO2 ABG 88.8 mmHg (80.0-100.0); PO2 FiO2 Ratio Arterial Blood 3.17 %; Total Hemoglobin 11.4 g/dL (12.0-18.0); pH ABG 7.468 (7.350-7.450)
[2022-11-21 13:51] LABS: Device NASAL CANNULA; Modified Allen's Test Pass; Site Drawn RIGHT RADIAL
--- NOTE | 2022-11-21 14:44 | PCCCNOTE ---
On 11/21/22, the student, [Tonja Galdamez], provided care and completed [facility] documentation on this patient. I have reviewed the student's documentation and agree with the findings.
[2022-11-21 16:06] LABS: Hemoglobin 7.7 g/dL (14.0-18.0); Mean Corpuscular HGB Conc 30.8 g/dl (32-36); Mean Corpuscular Hemoglobin 28.1 pg (26-34); Mean Corpuscular Volume 91.2 fl (80-100); Mean Platelet Volume 8.8 fl (7.4-10.4); Platelet Count Result 259 k/mm3 (150-375); Red Blood Count 2.74 M/mm3 (4.6-6.20); Red Cell Distribution Width 14.2 % (11.5-14.5); White Blood Count 10.9 K/mm3 (4.5-10.0)
[2022-11-21] MEDS: IPRATROPIUM BR 0.02% INH SOLN 0.5 MG/2.5 ML VIAL INHALATION ×3 (16:17→23:50)
[2022-11-21] MEDS: LEVALBUTEROL NEB 1.25 MG/3 ML INHALATION ×3 (16:17→23:51)
[2022-11-21 16:54] LABS: Appearance Urine Clear (Clear); Bilirubin Urine Negative (Negative); Blood Urine Negative (Negative); Color Urine Yellow (Yellow); Glucose Urine UA Negative (Negative); Ketones Urine Negative (Negative); Leukocyte Esterase Ur Negative LEU/UL (Negative); Nitrate Urine Negative (Negative); Protein Urine Negative (Negative); Specific Grav Ur 1.015 (1.001-1.035); pH Urine 5.5 (5.0-9.0)
[2022-11-21 17:08] LABS: Add Urine Microscopic? NO
[2022-11-21 17:37] LABS: Influenza A QL RT-PCR Negative (Negative); Influenza B QL RT-PCR Negative (Negative); RSV RNA, RT-PCR Negative (Negative); SARS-CoV-2 RNA PCR Negative (Negative)
[2022-11-21] MEDS: NICOTINE (*PBKC) 21 MG PATCH 1 PATCH TRANSDERM (18:45)
[2022-11-21 20:25] LABS: IFOB Positive Control Positive; Immunochemical Fecal Occult Bl Negative (N)
[2022-11-21 23:37] LABS: Hematocrit 24.8 % (42.0-52.0); Hemoglobin 7.8 g/dL (14.0-18.0)
[2022-11-22] VITALS (28 sets, daily range): BP systolic 90–118; BP diastolic 46–64; PULSE 98–130; RESP 20–32; TEMP 36.1–37.3; O2SAT 91–99
[2022-11-22] MEDS: AZITHROMYCIN 500 MG/NS 250 ML 500 MG/250 ML BAG 250 MG IVPB (00:05)
[2022-11-22] MEDS: HALOPERIDOL LACTATE 5 MG/ML VIAL IM (01:40)
[2022-11-22] MEDS: diphenhydrAMINE HCl INJ 50 MG/ML VIAL 25 MG IV PUSH (01:48)
[2022-11-22] MEDS: LORazepam INJ (*CRX) 2 MG/ML VIAL 1 MG IM (01:48)
--- NOTE | 2022-11-22 01:53 | PC.NURSE ---
Around 0130, patient became extremely agitated, attempting to get out of bed and hit and kick staff members. Patient cussing at staff telling them Get the fuck out of my room. I'm not at the [facility]. Unable to redirect patient. RN notified Dr. Quintana and received one time orders for medications. No PRN orders received at this time. Patient continues to pull at Santa catheter and IV trying to remove them. Patient extremely aggressive toward staff members this entire shift. Patient received one dose of Haldol earlier this evening around 2100. PRN medications needed due to aggressive behavior. Will continue to monitor.
[2022-11-22] MEDS: LEVALBUTEROL NEB 1.25 MG/3 ML INHALATION ×5 (04:30→20:33)
[2022-11-22] MEDS: IPRATROPIUM BR 0.02% INH SOLN 0.5 MG/2.5 ML VIAL INHALATION ×5 (04:30→20:34)
[2022-11-22 06:38] LABS: Hematocrit 25.4 % (42.0-52.0); Hemoglobin 7.8 g/dL (14.0-18.0); Mean Corpuscular HGB Conc 30.7 g/dl (32-36); Mean Corpuscular Hemoglobin 27.6 pg (26-34); Mean Corpuscular Volume 89.8 fl (80-100); Mean Platelet Volume 8.7 fl (7.4-10.4); Platelet Count Result 240 k/mm3 (150-375); Red Blood Count 2.83 M/mm3 (4.6-6.20); Red Cell Distribution Width 14.3 % (11.5-14.5); White Blood Count 12.9 K/mm3 (4.5-10.0)
[2022-11-22 06:48] LABS: Creatine Kinase 366 U/L (55-170)
[2022-11-22 06:56] LABS: Anion Gap 7 mmol/L (8-16); Blood Urea Nitrogen 20 mg/dL (9-20); Calcium 7.8 mg/dL (8.4-10.2); Carbon Dioxide 27 mmol/L (22-30); Chloride 103 mmol/L (98-107); Estimated CRCL calculation 40 ml/min; Estimated Glomerular Filt Rate 38; Glucose 97 mg/dL (65-110); Magnesium 2.1 mg/dL (1.6-2.3); Sodium 137 mmol/L (137-145)
[2022-11-22 06:59] LABS: NT Pro B Type Natriuretic Pept 7150 pg/mL (19.9-100)
[2022-11-22 07:16] LABS: Rheumatoid Factor < 12.0 IU/ML (<12)
--- NOTE | 2022-11-22 09:10 | PM.PNPUL ---
Progress Note: A&P Assessment and Plan (1) Pneumonia: Code(s): J18.9 - Pneumonia, unspecified organism Status: Acute Assessment and Plan: Patient with a 25 pack year tobacco use and is currently smoking at 1/2 pack per day and a chest x-ray with diffuse infiltrates bilaterally, white blood cell count 12.9 at admission with borderline blood pressure and tachycardia and acute kidney injury with a creatinine of 2.0. CT scan demonstrates evidence of chronic interstitial lung disease as well as confluent consolidation in the right lower lobe with patchy ground-glass infiltrates. Patient may have pneumonia. Covid, influenza, RSV RT PCR studies negative. Blood cultures negative. Patient has had a stroke and may also be at risk for aspiration. 11/22 Patient is afebrile. White count today is 12.9, chest x-ray is unchanged from admission and his oxygenation has improved from 2 L and currently is on room air with saturations 94%. Urine Legionella, urine pneumococcal, urine histoplasmosis, serum mycoplasma IgM, extended respiratory pathogen panel are pending. Plan: Continue ceftriaxone and azithromycin, day 3. (2) ILD (interstitial lung disease): Code(s): J84.9 - Interstitial pulmonary disease, unspecified Status: Acute Assessment and Plan: Patient with a CT scan of the chest on 11/21/2022 with diffuse peripheral and basilar predominant reticular septal thickening with honeycombing with minimal ground-glass patchy infiltrates and dense consolidation of the right lower lobe as well as apical predominant paraseptal emphysema. Prior imaging at our facility demonstrates a CT scan of the chest on 07/16/2009 with minimal dependent atelectasis and a chest x-ray on 11/10/2013 that demonstrates improved diffuse bibasilar interstitial opacities compared with 09/06/2013. 11/22/22 I believe the patient does have an interstitial lung disease favoring a UIP-IPF diagnosis. I have sent serologies to assess for connective tissue disorders. I have ordered a GRACIELA screen that includes 11 different auto antibodies, an ANCA screen, a rheumatoid factor, anti CCP antibody, hypersensitivity pneumonitis panel, a CPK, an aldolase level, and myomarker 3 plus profile. Rheumatoid factor is less than 12, CPK 336 and remainder are pending. Plan: patient is clinically stable and now is oxygen a well on room air with treatment for bacterial pneumonia. Will continue to monitor the patient on this treatment. (3) COPD (chronic obstructive pulmonary disease): Code(s): J44.9 - Chronic obstructive pulmonary disease, unspecified Status: Acute Assessment and Plan: Patient with a 25 pack year tobacco use and is currently smoking at 1/2 pack per day, mild apical predominant paraseptal emphysema. I have no PFTs. Patient was maintained on albuterol PRN at home. Baseline could walk 30-40 steps due to his prior stroke. He was not on any home oxygen. ABG on 2 L nasal cannula the pH of 7.47/36/88. There is no evidence of hypercarbic respiratory failure. D-dimer is positive with an intermediate V/Q scan and negative lower extremity Dopplers and upper extremity Dopplers. Patient was on anticoagulations making a PE I feel a PE is low likely 11/22/22 The patient may have COPD and will need outpatient PFTs to confirm this diagnosis. In the meantime I will treat with bronchodilators and will continue nebulized ipratropium and levalbuterol q.4 hours. Patient may have an active pulmonary infection and I will not initiate inhaled or systemic steroids at this time. (4) Hemoptysis: Code(s): R04.2 - Hemoptysis Status: Acute Assessment and Plan: Patient with a 25 pack year tobacco use and is currently smoking at 1/2 pack per day and a chest x-ray with diffuse infiltrates bilaterally, white blood cell count 12.9 at admission with borderline blood pressure and tachycardia and acute kidney injury with a cre
[2022-11-22] MEDS: PRAVASTATIN SODIUM 20 MG TABLET 80 MG PO (09:56)
[2022-11-22] MEDS: POTASSIUM CHLORIDE 20 MEQ TABLET.ER PO (09:58)
[2022-11-22] MEDS: FLUoxetine HCL 20 MG CAPSULE PO (09:58)
[2022-11-22] MEDS: lisinopriL 5 MG TABLET PO (09:59)
[2022-11-22] MEDS: PANTOPRAZOLE 40 MG TABLET PO (09:59)
[2022-11-22] MEDS: GABAPENTIN 300 MG CAPSULE PO (09:59)
[2022-11-22] MEDS: AMIODARONE 360 MG/D5W 200 ML 360 MG/200 ML BAG 33.33 MG IV CONT (10:01)
[2022-11-22] MEDS: AMIODARONE 150 MG/D5W 100 ML 150 MG/100 ML BAG 600 MG IV CONT (10:03)
--- NOTE | 2022-11-22 10:03 | PM.CNCAR ---
Assessment and Plan Assessment and plan (1) Atrial flutter with rapid ventricular response: Code(s): I48.92 - Unspecified atrial flutter Status: Acute Assessment and Plan: Currently on Metoprolol 50mg BID. Echo done 11/21 shows LVEF 40-45%, trace MR, mild TR. Study was done with patient in atrial flutter with RVR. As patient's SBP are in the 90smmHg, I do not think he will tolerate higher doses of beta fabricio for rate control. Will start Amiodarone drip. Anticoagulation on hold for workup of anemia and hemoptysis. When stable from a bleeding standpoint, recommend to restart therapeutic anticoagulation for stroke prophylaxis for atrial flutter. Patient was on Xarelto 15mg at home (renal dosed for his kidney disease). (2) Acute anemia: Code(s): D64.9 - Anemia, unspecified Status: Acute Assessment and Plan: Anticoagulation is currently on hold. Workup as per primary team. History of Present Illness History of Present Illness Consult date/time: 11/22/22 10:03 Requesting physician: Tommy Schneider MD Consult reason: atrial fibrillation Reason For Visit: Pneumonia,COPD,Weakness,Anemia Narrative: We are consulted for atrial fibrillation with RVR. This is a 67-year-old male with history of CVA in 2010, tobacco use, CAD, hypertension, hyperlipidemia who presented with worsening dyspnea on exertion. EKG on admission showed atrial flutter with RVR. This appears to be a new diagnosis for the patient. He remains in atrial flutter with RVR on tele. He denies shortness of breath at this time. No chest pain, palpitations. Currently undergoing workup for hemoptysis, anemia. Review of Systems Review of Systems: All systems reviewed & are unremarkable except as noted in HPI and below (HPI) [facility] Past Medical History Medical History Anxiety Back pain Coronary artery disease CVA (cerebral vascular accident) Depression Hypertension Seizure Surgical History Surgical History History of appendectomy History of percutaneous coronary intervention Hx of CABG Social History Social History Smoking packs per day: 1 Smoking cigarettes per day: 20.0 Smoking status: Current every day smoker Alcohol intake: never Lack of Transportation: No Lack of Food: Never True Current Housing: I Have Housing Concerned About Future Housing: No Difficulty Paying Gas/Electric Bills: No Difficulty Paying for Meds: No Currently Unemployed: No Education: Decline to Answer Difficulty w/ Childcare or Family Care: Decline to Answer Spiritual care concerns: No Meds Home Medications and Allergies Home Medications Medication Instructions Recorded Confirmed Type albuterol sulfate 90 mcg/actuation 2 puff inhalation Q4H PRN 11/15/20 11/20/22 History aerosol inhaler (ProAir HFA) Shortness Of Breath Or Wheezing aspirin 81 mg tablet,delayed 81 mg PO DAILY 11/15/20 11/20/22 History release fluoxetine 20 mg capsule (Prozac) 20 mg PO DAILY 11/15/20 11/20/22 History furosemide 40 mg tablet 40 mg PO DAILY 11/15/20 11/20/22 History levothyroxine 112 mcg capsule 112 mcg PO DAILY 11/15/20 11/20/22 History lisinopril 5 mg tablet 5 mg PO DAILY 11/15/20 11/20/22 History potassium chloride 20 mEq 20 meq PO DAILY 11/15/20 11/20/22 History tablet,extended release pravastatin 80 mg tablet 80 mg PO DAILY 11/15/20 11/20/22 History rivaroxaban 15 mg tablet (Xarelto) 15 mg PO DAILY 11/15/20 11/20/22 History hydrocodone 7.5 mg-acetaminophen 1 tablet PO Q6H PRN pain (scale 05/22/21 11/20/22 Rx 325 mg tablet score 7-10) #120 tabs gabapentin 300 mg capsule 300 mg PO DAILY #30 caps 11/06/21 11/20/22 Rx carvedilol 3.125 mg tablet 3.125 mg PO BID 11/20/22 11/20/22 History Allergies Allergy/AdvReac Type Severity Reaction Status Date / Time No Known D
[2022-11-22] MEDS: NICOTINE (*PBKC) 21 MG PATCH 1 PATCH TRANSDERM (10:28)
--- NOTE | 2022-11-22 11:49 | PM.IMPN ---
Progress Note: A&P Assessment and Plan (1) Altered mental status: Code(s): R41.82 - Altered mental status, unspecified Status: Acute Assessment and Plan: This is improved. Workup negative (2) Hypothyroidism: Code(s): E03.9 - Hypothyroidism, unspecified Status: Acute Assessment and Plan: Supplemented. Continue home meds. (3) Hemoptysis: Code(s): R04.2 - Hemoptysis Status: Acute Assessment and Plan: No more hemoptysis Hemoglobin stable. cxr noted- continue abx for ? pna Appreciate pulmonary consult (4) CKD (chronic kidney disease) stage 3, GFR 30-59 ml/min: Code(s): N18.30 - Chronic kidney disease, stage 3 unspecified Status: Acute Assessment and Plan: Baseline stage III CKD with creatinine in the 1.8 -2.2 range. Monitor (5) Acute anemia: Code(s): D64.9 - Anemia, unspecified Status: Acute Assessment and Plan: Transfuse as needed. Likely have some component of anemia of chronic disease (6) Pneumonia: Code(s): J18.9 - Pneumonia, unspecified organism Status: Acute Assessment and Plan: Continue antibiotics. Will have speech therapy evaluate the patient and get modified barium swallow. (7) COPD (chronic obstructive pulmonary disease): Code(s): J44.9 - Chronic obstructive pulmonary disease, unspecified Status: Acute Assessment and Plan: Continue levalbuterol and ipratropium nebulization. (8) Atrial flutter with rapid ventricular response: Code(s): I48.92 - Unspecified atrial flutter Status: Acute Assessment and Plan: Started on amiodarone drip. Heart rate is still elevated. Hold anticoagulation for few days secondary to anemia and history of hemoptysis. Subjective Date/time seen: 11/22/22 11:49 Interval history: No complaints Exam Narrative: GENERAL: The patient is alert and orientedX2, in no apparent distress. He is uttering few incomprehensible words. HEENT: Pupils are equally round and briskly reactive to light. Oral mucous membranes are moist without lesions, with some dry blood.. NECK: The patient has no noted JVD. No adenopathy is appreciated. CHEST/LUNGS: Lungs with diffuse bilateral rhonchi. No rales, or wheezes. There is no subcutaneous air appreciated. There is no tenderness to the chest wall. HEART: The patient has a regular rate and rhythm. No murmurs, rubs, or gallops are appreciated. ABDOMEN: The patient?s abdomen is soft, nontender, and nondistended. Bowel sounds are positive. No organomegaly is appreciated. No masses are appreciated. EXTREMITIES: The patient has no peripheral edema. There is no focal long bone tenderness or deformity. SKIN: The patient?s skin is warm and dry, without rashes or lesions. PSYCHIATRIC: He is AAOx2. NEUROLOGIC: The patient has L sided residual weakness. Objective Data Vital Signs Vital Signs: Vital Signs - 24 hr 11/21/22 12:00 11/21/22 13:00 11/21/22 12:00 Temperature 96.8 F L 97.2 F L Pulse Rate 117 H 115 H Respiratory Rate 24 H 24 H Blood Pressure 102/64 88/58 L Pulse Oximetry 100 100 100 Oxygen Delivery Nasal Cannula Oxygen Flow Rate 2 11/21/22 13:20 11/21/22 16:18 11/21/22 16:22 Temperature 97.1 F L Pulse Rate 118 H 117 H Respiratory Rate 20 20 Blood Pressure 88/59 L Pulse Oximetry 100 92 Oxygen Delivery Room Air Oxygen Flow Rate 11/21/22 16:33 11/21/22 16:00 11/21/22 12:00 Temperature 98.4 F Pulse Rate 119 H 118 H 123 H Respiratory Rate 20 24 H Blood Pressure 99/38 L Pulse Oximetry 96 Oxygen Delivery Oxygen Flow Rate 11/21/22 14:00 11/21/22 16:00 11/21/22 16:00 Temperature Pulse Rate 118 H 119 H Respiratory Rate Blood Pressure Pulse Oximetry 96 Oxygen Delivery Room Air Oxygen Flow Rate 11/21/22 18:00 11/21/22 13:05 11/21/22 20:00 Temperature 98.2 F Pulse Rate 100 110 H 100 Respiratory Rate 22 H 20 B
--- NOTE | 2022-11-22 13:01 | PCSTNOTE ---
Patient would not arouse in order to participate in MBS. Caregiver, Shira, reported patient was awake but confused this morning. Will attempt MBS tomorrow morning in hopes patient is awake and alert. Recommend soft foods only at this time as Shira noted coughing on solid foods.
[2022-11-22] MEDS: HYDROcodone/acetaminophen (*CRX) 7.5-325 MG TABLET 1 TAB PO (19:02)
[2022-11-22] MEDS: AMIODARONE 360 MG/D5W 200 ML 360 MG/200 ML BAG 16.67 MG IV CONT (19:57)
[2022-11-22] MEDS: OLANZapine 5 MG, WATER, STERILE FOR INJECTION 2.1 ML IM (20:03)
[2022-11-22] MEDS: QUEtiapine FUMARATE 25 MG TABLET PO (20:31)
[2022-11-23] VITALS (29 sets, daily range): BP systolic 76–111; BP diastolic 53–81; PULSE 87–118; RESP 16–26; TEMP 36.3–36.8; O2SAT 90–96
[2022-11-23] MEDS: IPRATROPIUM BR 0.02% INH SOLN 0.5 MG/2.5 ML VIAL INHALATION ×6 (00:33→23:45)
[2022-11-23] MEDS: LEVALBUTEROL NEB 1.25 MG/3 ML INHALATION ×6 (00:33→23:45)
[2022-11-23] MEDS: AZITHROMYCIN 500 MG/NS 250 ML 500 MG/250 ML BAG 250 MG IVPB (01:14)
[2022-11-23 04:52] LABS: Hematocrit 24.3 % (42.0-52.0); Hemoglobin 7.4 g/dL (14.0-18.0); Mean Corpuscular HGB Conc 30.5 g/dl (32-36); Mean Corpuscular Hemoglobin 28.1 pg (26-34); Mean Corpuscular Volume 92.4 fl (80-100); Mean Platelet Volume 8.8 fl (7.4-10.4); Platelet Count Result 233 k/mm3 (150-375); Red Blood Count 2.63 M/mm3 (4.6-6.20); Red Cell Distribution Width 14.6 % (11.5-14.5)
[2022-11-23 05:00] LABS: Anion Gap 8 mmol/L (8-16); Blood Urea Nitrogen 19 mg/dL (9-20); Calcium 7.9 mg/dL (8.4-10.2); Carbon Dioxide 27 mmol/L (22-30); Chloride 103 mmol/L (98-107); Estimated CRCL calculation 42 ml/min; Estimated Glomerular Filt Rate 40; Glucose 99 mg/dL (65-110); Magnesium 2.2 mg/dL (1.6-2.3); Sodium 138 mmol/L (137-145)
[2022-11-23] MEDS: AMIODARONE 360 MG/D5W 200 ML 360 MG/200 ML BAG 16.67 MG IV CONT ×2 (06:21→16:01)
[2022-11-23] MEDS: POTASSIUM CHLORIDE 20 MEQ TABLET.ER PO (08:15)
[2022-11-23] MEDS: PRAVASTATIN SODIUM 20 MG TABLET 80 MG PO (08:15)
[2022-11-23] MEDS: METOPROLOL TARTRATE 50 MG TAB PO ×2 (08:15→20:55)
[2022-11-23] MEDS: FLUoxetine HCL 20 MG CAPSULE PO (08:16)
[2022-11-23] MEDS: PANTOPRAZOLE 40 MG TABLET PO (08:16)
[2022-11-23] MEDS: GABAPENTIN 300 MG CAPSULE PO (08:16)
[2022-11-23] MEDS: lisinopriL 5 MG TABLET PO (08:16)
[2022-11-23] MEDS: ACETAMINOPHEN 325 MG TABLET 650 MG PO ×2 (08:19→22:10)
[2022-11-23] MEDS: NICOTINE (*PBKC) 21 MG PATCH 1 PATCH TRANSDERM (08:19)
--- NOTE | 2022-11-23 10:24 | PCSTNOTE ---
Please refer to the Modified Barium Swallow Evaluation in the EMR.
--- NOTE | 2022-11-23 10:42 | PM.PNPUL ---
Progress Note: A&P Assessment and Plan (1) Pneumonia: Code(s): J18.9 - Pneumonia, unspecified organism Status: Acute Assessment and Plan: Patient with a 25 pack year tobacco use and is currently smoking at 1/2 pack per day and a chest x-ray with diffuse infiltrates bilaterally, white blood cell count 12.9 at admission with borderline blood pressure and tachycardia and acute kidney injury with a creatinine of 2.0 (baseline on 07/09/[address] scan demonstrates evidence of chronic interstitial lung disease as well as confluent consolidation in the right lower lobe with patchy ground-glass infiltrates. Patient may have pneumonia. Covid, influenza, RSV RT PCR studies negative. Blood cultures negative. Patient has had a stroke and may also be at risk for aspiration. 11/22 Patient is afebrile. White count today is 12.9, chest x-ray is unchanged from admission and his oxygenation has improved from 2 L and currently is on room air with saturations 94%. Urine Legionella, urine pneumococcal, urine histoplasmosis, serum mycoplasma IgM, extended respiratory pathogen panel are pending. Plan: Continue ceftriaxone and azithromycin, day 3. 11/23 Patient is awake and communicative and states he feels better today. He is afebrile. No reports of hemoptysis. Rest room air saturations 93%. White blood cell count 9.0, creatinine 1.7. remains on amiodarone drip. Heart rate 104-118. modified barium swallow: no impairments oral stage. Pharyngeal stage with reduced laryngeal elevation contributing to reduced airway closure causing mild penetration on thin liquid per spoon and then perk up. Straw not attempted. Patient had no response to the penetration. None remained in the airway after each swallow. Cricopharyngeal stage no abnormalities. Recommendation independent oral eating. Urine Legionella, urine pneumococcal, urine histoplasmosis, serum mycoplasma IgM, extended respiratory pathogen panel are pending. Plan: Continue ceftriaxone and azithromycin, day 4. (2) ILD (interstitial lung disease): Code(s): J84.9 - Interstitial pulmonary disease, unspecified Status: Acute Assessment and Plan: Patient with a CT scan of the chest on 11/21/2022 with diffuse peripheral and basilar predominant reticular septal thickening with honeycombing with minimal ground-glass patchy infiltrates and dense consolidation of the right lower lobe as well as apical predominant paraseptal emphysema. Prior imaging at our facility demonstrates a CT scan of the chest on 07/16/2009 with minimal dependent atelectasis and a chest x-ray on 11/10/2013 that demonstrates improved diffuse bibasilar interstitial opacities compared with 09/06/2013. 11/22/22 I believe the patient does have an interstitial lung disease favoring a UIP-IPF diagnosis. I have sent serologies to assess for connective tissue disorders. I have ordered a GRACIELA screen that includes 11 different auto antibodies, an ANCA screen, a rheumatoid factor, anti CCP antibody, hypersensitivity pneumonitis panel, a CPK, an aldolase level, and myomarker 3 plus profile. Rheumatoid factor is less than 12, CPK 336 and remainder are pending. 11/23 Awaiting serologies for connective tissue disorder. Plan: patient is clinically stable and now is oxygen a well on room air with treatment for bacterial pneumonia. Will continue to monitor the patient on this treatment. I have spoken with the cardiology team and told them he has an uncharacterized interstitial lung disease and do not recommend long-term amiodarone in this patient. (3) COPD (chronic obstructive pulmonary disease): Code(s): J44.9 - Chronic obstructive pulmonary disease, unspecified Status: Acute Assessment and Plan: Patient with a 25 pack year tobacco use and is currently smoking at 1/2 pack per day, mild apical predominant paraseptal emphysema. I have no PFTs. Patient was maintained on albute
--- NOTE | 2022-11-23 10:48 | ECG_ITS ---
Measurements Intervals [place] Rate: 102 P: DE: 0 QRS: 43 QRSD: 104 T: 137 QT: 395 QTc: 515 Interpretive Statements ATRIAL FLUTTER/TACHYCARDIA WITH RAPID VENTRICULAR RESPONSE PROBABLE INFERIOR MYOCARDIAL INFARCTION , PROBABLY OLD [35 ms Q WAVE IN II/aVF] MODERATE T-WAVE ABNORMALITY, CONSIDER LATERAL ISCHEMIA [-0.1+ mV T WAVE IN I/aVL/V5/V6] COMPARED TO ECG 11/21/2022 14:08:52 NO SIGNIFICANT CHANGES Electronically Signed On 11-23-2022 13:50:17 CDT by Rafael Bailey M.D.
[2022-11-23 11:35] LABS: Glucose Point of Care 126 mg/dl (65-105)
[2022-11-23] MEDS: HYDROcodone/acetaminophen (*CRX) 7.5-325 MG TABLET 1 TAB PO ×2 (12:44→18:42)
--- NOTE | 2022-11-23 13:26 | PM.IMPN ---
Progress Note: A&P Assessment and Plan (1) Altered mental status: Code(s): R41.82 - Altered mental status, unspecified Status: Acute Assessment and Plan: This is improved. Workup negative (2) Hypothyroidism: Code(s): E03.9 - Hypothyroidism, unspecified Status: Acute Assessment and Plan: Supplemented. Continue home meds. (3) Hemoptysis: Code(s): R04.2 - Hemoptysis Status: Acute Assessment and Plan: No more hemoptysis Hemoglobin stable. cxr noted- continue abx for ? pna Appreciate pulmonary consult Will need to continue anticoagulation at some point. Will likely give a few more days and monitor hemoglobin and if stable we can resume anticoagulation. (4) CKD (chronic kidney disease) stage 3, GFR 30-59 ml/min: Code(s): N18.30 - Chronic kidney disease, stage 3 unspecified Status: Acute Assessment and Plan: Baseline stage III CKD with creatinine in the 1.8 -2.2 range. Monitor (5) Acute anemia: Code(s): D64.9 - Anemia, unspecified Status: Acute Assessment and Plan: Transfuse as needed. Likely have some component of anemia of chronic disease Fecal occult blood negative. (6) Pneumonia: Code(s): J18.9 - Pneumonia, unspecified organism Status: Acute Assessment and Plan: Continue antibiotics. Speech therapy evaluation noted. Will adjust diet. (7) COPD (chronic obstructive pulmonary disease): Code(s): J44.9 - Chronic obstructive pulmonary disease, unspecified Status: Acute Assessment and Plan: Continue levalbuterol and ipratropium nebulization. (8) Atrial flutter with rapid ventricular response: Code(s): I48.92 - Unspecified atrial flutter Status: Acute Assessment and Plan: Started on amiodarone drip. Heart rate is still elevated. Blood pressure marginal, cardiology aware. Will adjust blood pressure medications. Hold anticoagulation for few days secondary to anemia and history of hemoptysis. Subjective Date/time seen: 11/23/22 13:26 Interval history: No new complaints today. Breathing okay. Denies chest pain. Exam Narrative: GENERAL: The patient is alert and orientedX2, in no apparent distress. He is uttering few incomprehensible words. HEENT: Pupils are equally round and briskly reactive to light. Oral mucous membranes are moist without lesions, with some dry blood.. NECK: The patient has no noted JVD. No adenopathy is appreciated. CHEST/LUNGS: Lungs with diffuse bilateral rhonchi. No rales, or wheezes. There is no subcutaneous air appreciated. There is no tenderness to the chest wall. HEART: The patient has a regular rate and rhythm. No murmurs, rubs, or gallops are appreciated. ABDOMEN: The patient?s abdomen is soft, nontender, and nondistended. Bowel sounds are positive. No organomegaly is appreciated. No masses are appreciated. EXTREMITIES: The patient has no peripheral edema. There is no focal long bone tenderness or deformity. SKIN: The patient?s skin is warm and dry, without rashes or lesions. PSYCHIATRIC: He is AAOx2. NEUROLOGIC: The patient has L sided residual weakness. Objective Data Vital Signs Vital Signs: Vital Signs - 24 hr 11/22/22 16:16 11/22/22 16:27 11/22/22 16:00 Temperature Pulse Rate 110 H 101 H 110 H Respiratory Rate 24 H 28 H Blood Pressure Pulse Oximetry Oxygen Delivery Fraction of Inspired Oxygen 11/22/22 16:00 11/22/22 16:00 11/22/22 18:00 Temperature 99.2 F Pulse Rate 111 H 110 H Respiratory Rate 24 H Blood Pressure 97/62 L Pulse Oximetry 99 Oxygen Delivery Room Air Fraction of Inspired Oxygen 11/22/22 20:00 11/22/22 20:30 11/22/22 20:36 Temperature 97.8 F Pulse Rate 109 H 98 109 H Respiratory Rate 20 25 H Blood Pressure 90/64 L Pulse Oximetry 94 Oxygen Delivery Fraction of Inspired Oxygen 11/22/22 20:42 11/22/22 20:00 11/22/22 20:00 Temperatu
--- NOTE | 2022-11-23 14:17 | PCPTNOTE ---
Attempted PT Evaluation. Patient refused and stated his back hurts and tired. Despite encouragement from PT and RN, patient continues to refuse. Will follow.
--- NOTE | 2022-11-23 15:19 | PCOTNOTE ---
Patient refuses to participate on this date. Nursing aware. Will follow.
[2022-11-23] MEDS: QUEtiapine FUMARATE 25 MG TABLET PO (20:55)
[2022-11-23 22:57] LABS: Pneumococcal Antigen Urine Not Detected (Not Detected)
--- NOTE | 2022-11-23 23:10 | ECG_ITS ---
Measurements Intervals [place] Rate: 100 P: MS: 0 QRS: 64 QRSD: 117 T: -48 QT: 371 QTc: 480 Interpretive Statements ATRIAL FIBRILLATION WITH RAPID VENTRICULAR RESPONSE INCOMPLETE RIGHT BUNDLE BRANCH BLOCK [90+ ms QRS DURATION, TERMINAL R IN V1/V2, 40+ ms S IN I/aVL/V4/V5/V6] INFERIOR MYOCARDIAL INFARCTION [40+ ms Q WAVE AND/OR ST/T ABNORMALITY IN II/aVF], PROBABLY OLD WARNING: DATA QUALITY MAY AFFECT INTERPRETATION COMPARED TO ECG 11/23/2022 11:11:06 ATRIAL FIBRILLATION NOW PRESENT Electronically Signed On 11-24-2022 9:40:40 CDT by Rafael Bailey M.D.
[2022-11-24] VITALS (10 sets, daily range): BP systolic 62–83; BP diastolic 43–64; PULSE 85–97; RESP 20–26; TEMP 36.2–36.3; O2SAT 90–96
[2022-11-24] MEDS: SODIUM CHLORIDE 0.9% IV 250 ML 999 ML IV CONT (00:41)
--- NOTE | 2022-11-24 00:46 | PC.NURSE ---
Addendum entered by Maki Fisher RN 11/24/22 01:01: Patient alert and oriented with periods of confusion. Original Note: Kaylen Balderas RN had spoken with Dr Manzano per hypotension and CXR results and discussed current condition. Dr. Manzano ordered 250 bolus and recommended family be called to make aware patient has made a turn for the worse discuss comfort care. This nurse called Vilma and discussed events of this evening, CXR, blood pressure, and CT scans that were taken. made aware CT scans were not back yet. agreeable to comfort care at this time, does not feel would want to continue treatment. agreeable to initiating comfort care now and is aware that he may before she can come up and see him since she currently plans to come up in the morning due to transportation issues. Dr Manzano called and is entering comfort care orders.
--- NOTE | 2022-11-24 00:51 | PM.EVENT ---
Event Note Event Note Event Note: Patient had a change in status became tachypneic, distress, pale, with pulse ox of 70% Subjective: I have back pain Objective: Patient acutely ill in distress non-rebreather mask on thrashing about BP 62/43 pulse ox 88% General: Ill-appearing, generalized pallor. HEENT: Atraumatic normocephalic anisocoria, EOM intact, neck supple, no JVD. Respiratory: Crackles diffusely throughout, diminished breath sounds throughout. Cardiovascular: Irregularly irregular rhythm tachycardia Abdomen: Soft nontender nondistended no hepatosplenomegaly Extremities: Clubbing, no edema. Central nervous system: Agitated, thrashing. Skin: Generalized pallor Assessment and plan: 1. Acute hypoxic respiratory failure:Patient currently on a non rebreather mask, family was updated on patient's status change and decision was made to do comfort measures only as patient has expressed his wishes to let nature run its course patient with advanced directives as do not resuscitate. 2. Worsening lung infiltrates: Comfort care measures only
[2022-11-24] MEDS: SCOPOLAMINE 1.5 MG PATCH TRANSDERM (01:30)
[2022-11-24] MEDS: MORPHINE 50 MG/NS 100ML (*CRX) 50 MG/100 ML BAG IV CONT (01:31)
[2022-11-24] MEDS: MORPHINE SULFATE ORAL CONC SOL (*CRX) 10 MG/0.5 ML SYRINGE 5 MG PO (02:30)
[2022-11-24] MEDS: LORazepam (*CRX) 2 MG/ML 30 ML ORAL CONCENTRATE 1 MG SUBLINGUAL (02:30)
--- NOTE | 2022-11-24 03:50 | PC.NURSE ---
Late Entry 11/23/22 at 2300 Patient called out stating he couldn't breathe. Pulse ox applied and O2 sat 70%. Lungs are coarse throughout and haven't change from initial assessment. B/P 111/87. Rt. pupil is noted to be fixed and dilated, Lt pupil normal size and non-reactive. Patient has a history of a right sided CVA with left sided weakness that has not changed since initial assessment. Dr. Manzano and Deborah Small [employer] notified and came to assess the patient. Patient placed on a 15L high flow cannula and 15L non-rebreather. Patient also complaining of severe back and neck pain. Patient very pale and dusky. It is of note that the patient is a DNR and refuses intubation. Orders for CT of the head, chest, abdomen, and pelvis. Patient transported to CT department with this RN, Maki RN, and RT. Patient confused and not wanting to lay still for CT. Ultimately, CT was completed. Upon return to the patient's room, B/P was 62/43, Aflutter 88, O2 sat 92%. Dr. Manzano notified, order for 250 ML normal saline bolus. Repeat B/P after bolus 74/45. See Maki Fisher RN note for further details. Patient placed on 15L NRB.
--- NOTE | 2022-11-24 04:04 | PC.NURSE ---
Late Entry 11/24/22 at 0100 and daughter here at bedside.
--- NOTE | 2022-11-24 04:27 | PC.NURSE ---
Late Entry 11/24/22 at 0200 Patient continues to remove non-rebreather. Changed to 4L high flow cannula. Family remains at bedside. Patient more comfortable with Morphine drip, PRN oral morphine, and PRN oral Ativan.
[2022-11-24] MEDS: NICOTINE (*PBKC) 21 MG PATCH 1 PATCH TRANSDERM (10:16)
--- NOTE | 2022-11-24 12:35 | PM.IMPN ---
Progress Note: A&P Assessment and Plan (1) Altered mental status: Code(s): R41.82 - Altered mental status, unspecified Status: Acute Assessment and Plan: Patient has episodes of altered mental status. (2) Hypothyroidism: Code(s): E03.9 - Hypothyroidism, unspecified Status: Acute (3) Hemoptysis: Code(s): R04.2 - Hemoptysis Status: Acute Assessment and Plan: CT scan noted. Previously on antibiotics. Patient was made comfort measures overnight. Lengthy discussion with the patient and family. Hospice consult. (4) CKD (chronic kidney disease) stage 3, GFR 30-59 ml/min: Code(s): N18.30 - Chronic kidney disease, stage 3 unspecified Status: Acute Assessment and Plan: Baseline stage III CKD with creatinine in the 1.8 -2.2 range. Monitor (5) Acute anemia: Code(s): D64.9 - Anemia, unspecified Status: Acute Assessment and Plan: Monitor (6) Pneumonia: Code(s): J18.9 - Pneumonia, unspecified organism Status: Acute Assessment and Plan: Monitor See plan above (7) COPD (chronic obstructive pulmonary disease): Code(s): J44.9 - Chronic obstructive pulmonary disease, unspecified Status: Acute Assessment and Plan: See plan above (8) Atrial flutter with rapid ventricular response: Code(s): I48.92 - Unspecified atrial flutter Status: Acute Assessment and Plan: See plan above Plan Hospice consult Subjective Date/time seen: 11/24/22 12:35 Interval history: Patient is currently on 4L of oxygen. Patient is lethargic. Apparently overnight and episode of either worsening pneumonia or acute aspiration. He became hypoxic and is now requiring oxygen. Patient wants to be made comfort measures. Family is present, next of kin also wants patient to be comfort measures. Exam Narrative: GENERAL: The patient is alert and orientedX2, in no apparent distress. He is uttering few incomprehensible words. HEENT: Pupils are equally round and briskly reactive to light. Oral mucous membranes are moist without lesions, with some dry blood.. NECK: The patient has no noted JVD. No adenopathy is appreciated. CHEST/LUNGS: Lungs with diffuse bilateral rhonchi. No rales, or wheezes. There is no subcutaneous air appreciated. There is no tenderness to the chest wall. HEART: The patient has a regular rate and rhythm. No murmurs, rubs, or gallops are appreciated. ABDOMEN: The patient?s abdomen is soft, nontender, and nondistended. Bowel sounds are positive. No organomegaly is appreciated. No masses are appreciated. EXTREMITIES: The patient has no peripheral edema. There is no focal long bone tenderness or deformity. SKIN: The patient?s skin is warm and dry, without rashes or lesions. PSYCHIATRIC: He is AAOx2. NEUROLOGIC: The patient has L sided residual weakness. Objective Data Vital Signs Vital Signs: Vital Signs - 24 hr 11/23/22 13:55 11/23/22 15:49 11/23/22 16:00 Temperature Pulse Rate 100 98 100 Respiratory Rate 18 18 Blood Pressure Pulse Oximetry Oxygen Delivery Oxygen Flow Rate Fraction of Inspired Oxygen 11/23/22 16:00 11/23/22 16:00 11/23/22 16:00 Temperature 97.9 F Pulse Rate 100 99 Respiratory Rate 20 Blood Pressure 100/61 Pulse Oximetry 90 Oxygen Delivery Room Air Oxygen Flow Rate Fraction of Inspired Oxygen 11/23/22 17:58 11/23/22 20:00 11/23/22 20:25 Temperature 97.5 F L Pulse Rate 98 99 99 Respiratory Rate 20 18 Blood Pressure 109/65 Pulse Oximetry 95 Oxygen Delivery Oxygen Flow Rate Fraction of Inspired Oxygen 11/23/22 20:28 11/23/22 20:34 11/23/22 20:55 Temperature Pulse Rate 99 99 99 Respiratory Rate 18 Blood Pressure Pulse Oximetry 90 Oxygen Delivery Room Air Oxygen Flow Rate Fraction of Inspired Oxygen 21 11/23/22 20:00 11/23/22 20:00 11/23/22 23:00 Temperature 98.2 F P
--- NOTE | 2022-11-24 12:35 | PC.NURSE ---
This patient, Billy Rosenberg, was received from [ [id number]] on 11/24/22 at 1235. Patient/family oriented to unit policies and routines
--- NOTE | 2022-11-24 12:47 | PC.NURSE ---
This patient, Billy Rosenberg, was transferred to [facility] on 11/24/22 at 1227. Personal belongings sent with patient. Report given to MAYITO Maradiaga. Appropriate documentation sent with patient.
[2022-11-25 06:15] LABS: Legionella pneumophila Ag Ur Not Detected (Not Detected)
[2022-11-26 11:46] LABS: ANA Cascade Screen Positive (Negative)
[2022-11-26 13:37] LABS: Chromatin (Nucleosomal) Ab <1.0; RNP Antibody 1.4; Sm Antibody <1.0; Sm/RNP Antibody <1.0
[2022-11-27 10:25] LABS: Alpha-1-Antitrypsin, QN >300 mg/dL (83-199)
[2022-11-27 20:19] LABS: Aldolase 7.6 U/L (<=8.1)
[2022-11-28 10:27] LABS: ANCA Screen Negative (Negative)
[2022-11-28 13:08] LABS: Anti Cyclic Citrullinated Pept <16 Units (<20)
[2022-11-28 20:16] LABS: Mycoplasma IgM Antibody Titer 56 U/mL (<770)
--- NOTE | 2022-12-20 15:58 | PM.DS ---
DS: Admitting Diagnosis Discharge Date 11/24/22 Admitting Diagnosis pna, hemoptysis DS: Discharge Diagnosis Discharge Diagnosis (1) Altered mental status: Code(s): R41.82 - Altered mental status, unspecified Status: Acute Assessment and Plan: Patient has episodes of altered mental status. (2) Hypothyroidism: Code(s): E03.9 - Hypothyroidism, unspecified Status: Acute (3) Hemoptysis: Code(s): R04.2 - Hemoptysis Status: Acute Assessment and Plan: CT scan noted. Previously on antibiotics. Patient was made comfort measures overnight. Lengthy discussion with the patient and family. Hospice consult. (4) CKD (chronic kidney disease) stage 3, GFR 30-59 ml/min: Code(s): N18.30 - Chronic kidney disease, stage 3 unspecified Status: Acute Assessment and Plan: Baseline stage III CKD with creatinine in the 1.8 -2.2 range. Monitor (5) Acute anemia: Code(s): D64.9 - Anemia, unspecified Status: Acute Assessment and Plan: Monitor (6) Pneumonia: Code(s): J18.9 - Pneumonia, unspecified organism Status: Acute Assessment and Plan: Monitor See plan above (7) COPD (chronic obstructive pulmonary disease): Code(s): J44.9 - Chronic obstructive pulmonary disease, unspecified Status: Acute Assessment and Plan: See plan above (8) Atrial flutter with rapid ventricular response: Code(s): I48.92 - Unspecified atrial flutter Status: Acute Assessment and Plan: See plan above Plan Hospice consult DS: Summary Hospital Course Hospital Course: admitted for hemoptysis , pna lengthy discussion with patient and family - he wanted to be made hospice hospice initiated Time Spent with Patient Time attestation: Total time spent providing and/or coordinating discharge services: Exam Narrative: GENERAL: The patient is alert and orientedX2, in no apparent distress. He is uttering few incomprehensible words. HEENT: Pupils are equally round and briskly reactive to light. Oral mucous membranes are moist without lesions, with some dry blood.. NECK: The patient has no noted JVD. No adenopathy is appreciated. CHEST/LUNGS: Lungs with diffuse bilateral rhonchi. No rales, or wheezes. There is no subcutaneous air appreciated. There is no tenderness to the chest wall. HEART: The patient has a regular rate and rhythm. No murmurs, rubs, or gallops are appreciated. ABDOMEN: The patient?s abdomen is soft, nontender, and nondistended. Bowel sounds are positive. No organomegaly is appreciated. No masses are appreciated. EXTREMITIES: The patient has no peripheral edema. There is no focal long bone tenderness or deformity. SKIN: The patient?s skin is warm and dry, without rashes or lesions. PSYCHIATRIC: He is AAOx2. NEUROLOGIC: The patient has L sided residual weakness. Discharge Plan Discharge Consulting providers: Tommy Walters; Rafael Bailey; Atul Manzano V.; Shimon Cummings; Peter Cash; Roman Bush; Jose Rao V.; Raphael Morillo Patient Disposition: Hospice [facility] [place] Inpatient Patient Instructions: Heart Failure (DC), How to Stop Smoking (DC), Cigarette Smoking and Your Health (GEN) Date of admission: 11/21/22 10:41 Primary Care Provider: SONJABRANDO Admitting Provider: Adelina Quintana Attending physician on admission: Tommy Schneider Condition: Stable
== END 2022-11-24 15:21 | disposition hospice, inpatient (51) | DRG 194 ==
LOC: ANHED 19:28 → ANHIMU 23:03 → ANH3MEDSUR 11-24 14:37 → ANHIMU 11-26 14:18
PROVIDERS: Internal Medicine Pulmonary Disease; Admitting Provider Internal Medicine; Emergency Provider Emergency Medicine; PCP Nurse Practitioner Family; Visit Provider Chiropractor
DX: J18.9 Pneumonia, unspecified organism (principal); I48.92 Unspecified atrial flutter; R04.2 Hemoptysis; I69.954 Hemiplegia and hemiparesis following unspecified cerebrovascular disease affecting left non-dominant side; E03.9 Hypothyroidism, unspecified; N18.30 Chronic kidney disease, stage 3 unspecified; R41.82 Altered mental status, unspecified; R09.02 Hypoxemia; Z91.81 History of falling; Z95.1 Presence of aortocoronary bypass graft; F32.A Depression, unspecified; F41.9 Anxiety disorder, unspecified; J43.8 Other emphysema; F17.210 Nicotine dependence, cigarettes, uncomplicated; Z20.822 Contact with and (suspected) exposure to COVID-19; Z79.899 Other long term (current) drug therapy; Z79.01 Long term (current) use of anticoagulants
CPT/HCPCS: 36415; 36430; 36600; 70450; 71045; 71250; 71260; 74177; 78580; 80048; 80053; 81003; 82085; 82103; 82104; 82140; 82274; 82550; 82607; 82728; 82746; 82805; 82948; 83540; 83550; 83605; 83735; 83880; 84439; 84443; 84480; 84484; 85014; 85018; 85025; 85027; 85380; 85610; 85730; 86036; 86038; 86200; 86331; 86430; 86606; 86609; 86738; 86850; 86900; 86901; 86923; 87040; 87385; 87449; 87486; 87581; 87633; 87635; 87637; 87899; 92611; 93005; 93306; 93970; 94640; 96361; 96365; 96372; 96375; 99285; A9270; A9540; G0378; J0282; J0456; J0696; J1200; J1630; J1756; J2060; J2270; J7030; J7040; J7050; P9016; Q9967

== ENCOUNTER 2022-11-24 15:24 | HOS | payer OTHER, MEDICARE, MEDICAID, SELFPAY ==
[2022-11-24 15:39] VITALS: O2SAT 92; BMI 23.4
[2022-11-24] MEDS: MORPHINE SULFATE (*CRX) 2 MG/ML INJ IV PUSH ×2 (17:54→19:55)
[2022-11-24 21:18] VITALS: BP 73/54; PULSE 102; RESP 22; TEMP 36.6; O2SAT 91
[2022-11-25] MEDS: MORPHINE SULFATE INJ (*CRX) 50 MG in SODIUM CHLORIDE 0.9% IV 95 ML IV CONT
[2022-11-25] MEDS: MORPHINE SULFATE (*CRX) 2 MG/ML INJ IV PUSH ×2 (01:09→04:04)
[2022-11-25] MEDS: LORazepam INJ (*CRX) 2 MG/ML VIAL 1 MG IV PUSH (01:11)
--- NOTE | 2022-11-25 06:43 | PC.NURSE ---
This patient 11/25/22 at 0545
--- NOTE | 2022-11-25 08:48 | PC.NURSE ---
Home, [facility] in [place] has been notified. Career Representative updated with home details. Leydi with [facility] called and stated that family denied donation at 0826. billposting supervisor updated with home details. IV line and Santa catheter removed. Security notified of [place] [facility] [place]
--- NOTE | 2022-11-25 14:03 | PM.IMHP ---
H&P: HPI History of Present Illness Date/Time: 11/25/22 14:03 Chief Complaint: uncontrolled dyspnea Narrative: 67 y/o m admitted 11/20 for increaesd dyspnea. Found to have bilateral infiltrates superimposed on changes c/w ILD. In spite of broad spectrum antibx, he continue to deterioate. On 11/24 he became more sob and was placed on bipap. He did not tolerate that and because of his disabilities and comordities and wishes for no further aggressive care, his family opted for inpatient hospice for control of symptoms. Review of Systems Review of Systems: ROS unobtainable: Yes unobtainable due to medical condition PMFSH Past Medical History Medical History Anxiety Back pain Coronary artery disease CVA (cerebral vascular accident) Depression Hypertension Seizure Surgical History Surgical History History of appendectomy History of percutaneous coronary intervention Hx of CABG Social History Social History Smoking packs per day: 1 Smoking cigarettes per day: 20.0 Smoking status: Current every day smoker Alcohol intake: never Lack of Transportation: No Lack of Food: Never True Current Housing: I Have Housing Concerned About Future Housing: No Difficulty Paying Gas/Electric Bills: No Difficulty Paying for Meds: No Currently Unemployed: No Education: Decline to Answer Difficulty w/ Childcare or Family Care: Decline to Answer Spiritual care concerns: No Meds Home Medications and Allergies Home Medications Medication Instructions Recorded Confirmed Type albuterol sulfate 90 mcg/actuation 2 puff inhalation Q4H PRN 11/15/20 11/20/22 History aerosol inhaler (ProAir HFA) Shortness Of Breath Or Wheezing aspirin 81 mg tablet,delayed 81 mg PO DAILY 11/15/20 11/20/22 History release fluoxetine 20 mg capsule (Prozac) 20 mg PO DAILY 11/15/20 11/20/22 History furosemide 40 mg tablet 40 mg PO DAILY 11/15/20 11/20/22 History levothyroxine 112 mcg capsule 112 mcg PO DAILY 11/15/20 11/20/22 History lisinopril 5 mg tablet 5 mg PO DAILY 11/15/20 11/20/22 History potassium chloride 20 mEq 20 meq PO DAILY 11/15/20 11/20/22 History tablet,extended release pravastatin 80 mg tablet 80 mg PO DAILY 11/15/20 11/20/22 History rivaroxaban 15 mg tablet (Xarelto) 15 mg PO DAILY 11/15/20 11/20/22 History hydrocodone 7.5 mg-acetaminophen 1 tablet PO Q6H PRN pain (scale 05/22/21 11/20/22 Rx 325 mg tablet score 7-10) #120 tabs gabapentin 300 mg capsule 300 mg PO DAILY #30 caps 11/06/21 11/20/22 Rx carvedilol 3.125 mg tablet 3.125 mg PO BID 11/20/22 11/20/22 History Allergies Allergy/AdvReac Type Severity Reaction Status Date / Time No Known Drug Allergies Allergy Mild Unknown Verified 04/20/21 14:07 Vital Signs Vital Signs - 24 hr 11/24/22 15:39 11/24/22 21:18 Temperature 97.8 F Pulse Rate 102 H Respiratory Rate 22 H Blood Pressure 73/54 L Pulse Oximetry 92 91 Oxygen Delivery High Flow Nasal Cannula Oxygen Flow Rate 4 Exam Narrative: prior to exam Assessment and Plan Assessment and plan (1) Palliative care encounter: Code(s): Z51.5 - Encounter for palliative care Status: Acute Assessment and Plan: Meets inpatient hospice criteria due to requiring continuous iv morphine for control of dyspnea (2) Pneumonia: Code(s): J18.9 - Pneumonia, unspecified organism Status: Acute (3) Atrial flutter with rapid ventricular response: Code(s): I48.92 - Unspecified atrial flutter Status: Acute (4) Acute respiratory failure with hypoxia: Code(s): J96.01 - Acute respiratory failure with hypoxia Status: Acute
--- NOTE | 2022-11-25 14:16 | P.DN_ITS ---
Discharge Summary Date and Time Date of : 11/25/22 Time of : 05:45 Provider Pronounced By: duglas Clarke Probable Cause of Probable Cause of : acute hypoxemic respiratory failure due to pneumonia superimposed on chronic interstitial lung disease Summary Hospital Course: Admitted to inpatient hospice service. Medications titrated to comfort. Mr. Rosenberg peacefully. Additional Data Confirmation of as documented by pronouncing clinician: Pupillary Reflex, Palpable Pulses, Response to Stimuli, Heart Tones and Breath Sounds Name of Provider Notified: Miah Time Provider Notified: 06:00 Provider Requests Autopsy: No Family Requests Autopsy: No Student Life Vice President Notified: Yes Date [facility] Notified of : 11/25/22 Time [facility] Notified of : 06:05
== END 2022-11-25 05:45 | disposition expired | DRG 951 ==
PROVIDERS: Admitting Provider Internal Medicine; PCP Nurse Practitioner Family; Visit Provider Internal Medicine
DX: Z51.5 Encounter for palliative care (principal); J96.01 Acute respiratory failure with hypoxia; J18.9 Pneumonia, unspecified organism; Z86.73 Personal history of transient ischemic attack (TIA), and cerebral infarction without residual deficits; F17.200 Nicotine dependence, unspecified, uncomplicated; Z79.899 Other long term (current) drug therapy
CPT/HCPCS: A9270; J2060; J2270